=== PATIENT | male | born 1940 | race Caucasian/White ===

== ENCOUNTER 2016-04-23 07:45 | Inpatient (IN) ==
[2016-04-15 14:12] LABS: Basophils # (Auto) 0 K/mcL (0.0-0.3); Basophils % (Auto) 0.3 % (0.0-2.0); Eosinophils # (Auto) 0.2 K/mcL (0.0-0.7); Eosinophils % (Auto) 1.8 % (0.0-7.0); Granulocytes % (Auto) 69.6 % (38.0-78.0); Lymphocytes # (Auto) 1.6 K/mcL (1.5-4.8); Lymphocytes % (Auto) 17.9 % (15.5-49.0); Mean Cell Volume 100.6 fL (80.0-100.0); Mean Corpuscular Hemoglobin 33.2 pg (26.0-34.0); Monocytes % (Auto) 10.4 % (1.0-9.0); Platelet Count 265 K/mcL (140-440); RBC 4.51 M/mcL (4.50-5.90); Red Cell Distribution Width 13.7 % (11.5-14.5)
[2016-04-15 14:17] LABS: Blood Urea Nitrogen 16 mg/dl (8-23)
[2016-04-16 18:42] LABS: Appearance,Urine CLEAR; Bilirubin,Urine NEG (NEG); Color,Urine YELLOW; Glucose,Urine (UA) NEGATIVE (NEG); Leukocyte Esterase,Urine NEG /uL (NEG); Nitrate,Urine NEG (NEG); Protein,Urine NEG (NEG); Specific Gravity,Urine 1.011 (1.000-1.035); Urine Blood NEG mg/dL (<0.03); Urobilinogen,Urine NEG (NEG)
[~2016-04-23 07:45] MED LIST: ACETAMINOPHEN 500 MG TABLET PO SCH; CELECOXIB 200 MG CAPSULE PO SCH; PREGABALIN 150 MG CAPSULE PO SCH; ceFAZolin 1 GM VIAL IV SCH; oxyCODONE 10 MG TAB.ER.12H PO SCH
[2016-04-23] MEDS ORDERED: DEXAMETHASONE 10 MG/ML VIAL ONE (11:31)
[2016-04-23] MEDS ORDERED: ePHEDrine 50 MG/ML AMPUL IV ONE (11:31)
[2016-04-23] MEDS ORDERED: LIDOCAINE HCL/PF 100 MG/5 ML SYRINGE IV ONE (11:31)
[2016-04-23] MEDS ORDERED: MIDAZOLAM 5 MG/5 ML VIAL ONE (11:31)
[2016-04-23] MEDS ORDERED: PHENYLEPHRINE 10 MG/ML VIAL ONE (11:31)
[2016-04-23] MEDS ORDERED: PROPOFOL 200 MG/20 ML VIAL IV ONE (11:31)
[2016-04-23] MEDS ORDERED: GLYCOPYRROLATE 0.2 MG/ML VIAL IV ONE (11:31)
[2016-04-23] MEDS ORDERED: ONDANSETRON 4 MG/2 ML VIAL ONE (11:31)
[2016-04-23] MEDS ORDERED: GENTAMICIN SULFATE 800 MG/20 ML VIAL IR ONE (12:00)
[2016-04-23] MEDS ORDERED: diphenhydrAMINE 50 MG/ML VIAL IV PRN (12:19)
[2016-04-23] MEDS ORDERED: PROMETHAZINE 25 MG/ML VIAL IM ONE (12:19)
[2016-04-23] MEDS ORDERED: fentaNYL 100 MCG/2 ML VIAL IV PRN (12:19)
[2016-04-23] MEDS ORDERED: MEPERIDINE 25 MG/ML SYRINGE IV PRN (12:19)
[2016-04-23] MEDS ORDERED: FLUMAZENIL 0.1 MG/ML ML IV PRN (12:19)
[2016-04-23] MEDS ORDERED: PROMETHAZINE 25 MG/ML VIAL IV PRN (12:19)
[2016-04-23] MEDS ORDERED: BENZOCAINE/MENTHOL 1 LOZENGE PO PRN ×2 (12:19→13:14)
[2016-04-23] MEDS ORDERED: MEPERIDINE 50 MG/ML SYRINGE IM ONE (12:19)
[2016-04-23] MEDS ORDERED: NALOXONE HCL 0.4 MG/ML VIAL IV PRN (12:19)
[2016-04-23] MEDS ORDERED: METHOCARBAMOL 1,000 MG/10 ML VIAL IV PRN (12:19)
[2016-04-23] MEDS ORDERED: ONDANSETRON 4 MG/2 ML VIAL IV PRN ×2 (12:19→13:14)
[2016-04-23] MEDS ORDERED: HYDROmorphone 2 MG/ML SYRINGE IV PRN ×2 (12:19→13:14)
[2016-04-23] MEDS ORDERED: LACTATED RINGERS 250 ML IV PRN (12:19)
[2016-04-23] MEDS ORDERED: IPRATROPIUM/ALBUTEROL 3 ML AMPUL.NEB NEB PRN (12:19)
[2016-04-23] MEDS ORDERED: ePHEDrine 50 MG/ML AMPUL IV PRN (12:19)
[2016-04-23] MEDS ORDERED: METOCLOPRAMIDE 10 MG/2 ML VIAL IV PRN (12:19)
[2016-04-23] MEDS ORDERED: LACTATED RINGERS 1,000 ML IV SCH (12:30)
[2016-04-23] MEDS ORDERED: POLYETHYLENE GLYCOL 3350 17 GM PACKET PO PRN (13:14)
[2016-04-23] MEDS ORDERED: TEMAZEPAM 15 MG CAPSULE PO PRN (13:14)
[2016-04-23] MEDS ORDERED: TRANEXAMIC ACID 1,000 MG/10 ML VIAL IV ONE (13:14)
[2016-04-23] MEDS ORDERED: FLEETS ADULT ENEMA PR PRN (13:14)
[2016-04-23] MEDS ORDERED: ONDANSETRON ODT 4 MG TABLET SL PRN (13:14)
[2016-04-23] MEDS ORDERED: MAGNESIUM HYDROXIDE 30 ML ORAL.SUSP PO PRN (13:14)
[2016-04-23] MEDS ORDERED: BISACODYL 10 MG SUPP.RECT PR PRN (13:14)
[2016-04-23] MEDS ORDERED: ALPRAZolam 0.25 MG TABLET PO PRN (13:17)
--- NOTE | 2016-04-23 13:25 | Brief Operative Note ---
Date of procedure: 04/23/16 Pre-op diagnosis: right hip djd and tear of hip abductore Post-op diagnosis: same Procedure: right total hip cemented stem uncemented cup Grafts/Implants: Yes Anesthesia: GETA Findings: severe arthritis Complications: none Complications Description: 04/23/16 13:24 none Surgeon: Alfie Alexandre Drag Out Man: Lauri Alejo Estimated blood loss (cc): 150 Specimens Removed/Pathology: none sent Condition: stable Disposition: PACU
[2016-04-23] MEDS ORDERED: METHOTREXATE SODIUM 2.5 MG TABLET PO SCH (13:30)
--- NOTE | 2016-04-23 14:30 | Operative Note ---
DATE OF OPERATION: 04/23/2016 PREOPERATIVE DIAGNOSIS: Right hip degenerative arthritis and abductor medius tear. POSTOPERATIVE DIAGNOSIS: Right hip degenerative arthritis and abductor medius tear. PROCEDURE: Right total hip arthroplasty with debridement of the gluteus medius. SURGEON: Alfie Alexandre MD HEAD OF ADVERTISING: Lauri Alejo PA-C ANESTHESIA: General LMA anesthesia. COMPLICATIONS: None. ESTIMATED BLOOD LOSS: About 150 mL IMPLANTS PLACED: A size 8 cemented stem with a +5 neck length, a 48 mm dual mobility ball with a 54 cup with 2 screws, two 30 mm screws with a dual mobility liner. The stem was cemented. The cup was not. DESCRIPTION OF PROCEDURE: The patient was brought to the operating room and put to sleep with general LMA anesthesia. Once asleep, the patient had the right hip sterilely prepped and draped in the usual sterile fashion. Once this was done, a posterior approach was performed after confirming operative report and preop antibiotics given and tranexamic acid. Preoperative timeout was accomplished, then we confirmed the right total hip arthroplasty was the procedure and released the piriformis, inspection of sciatic nerve as well as the gluteus medius and tensor fascia abduction. With this, we then irrigated thoroughly, dissected through the soft tissue and exposed the greater trochanter. We released the capsule posteriorly as well as the piriformis obturator internus. We dislocated the hip after checking offset and leg length measurements. We irrigated thoroughly, made the neck cut at 35 mm. Once this was done, we then reamed up to the size 54, implanted a 54 cup with two 30 mm screws. We irrigated thoroughly and then implanted the cup, two 30 mm screws with a dual mobility liner was placed. Aversion was about 20 degrees of anteversion. Once this was accomplished, we then reamed up on the femur and because of the poor quality of bone we decided to cement the stem. We then broached up to a size 8 for the cemented component and trialed a size 8. This seemed to accomplish leg length and offset and measurements. X-rays were taken to confirm the length. This seemed to look well positioned without fractures. We then cemented into place a size 8 stem with a +5 neck length, a dual mobility ball. This was also reduced and excess cement had been removed. Once the hip was dried, this was reduced, leg lengths rechecked and offset and leg length was equal. We irrigated and put a stitch in the hip abductors, at least the anterior third. We irrigated thoroughly and then closed the capsule with #2 Ethibond, closed the fascial layer with 0 Ethibond and #1 Vicryl, and closed the skin with 2-0 Vicryl and adhesive closure. The patient tolerated this well. Sterile bandage was applied. RBH:sherley Job ID: [id number] Doc ID: [id number] Alfie Alexandre MD
[2016-04-23] MEDS: 0.9 % SODIUM CHLORIDE 10 ML SYRINGE IV SCH ×2 (14:47→22:47)
--- NOTE | 2016-04-23 14:47 | XRay Report ---
HISTORY: Reason for Exam:Post-op Total Hip FINDINGS: There is a well-positioned right hip prosthesis. No fracture is present. The prosthetic acetabular cup appears to be embedded medially into the ischium. Postoperative changes are present following prior spinal fusion from L4 to S1. IMPRESSION: Well-positioned right hip prosthesis Interpreted and Authenticated by: Petr Dai 04/23/16
[2016-04-23] MEDS: 0.45 % SODIUM CHLORIDE 1,000 ML IV SCH (15:07)
[2016-04-23] MEDS: HYDROcodone/APAP 10/325MG TABLET PO PRN ×2 (16:21→20:20)
[2016-04-23] MEDS: KETOROLAC 15 MG/ML VIAL IV PRN (18:32)
[2016-04-23] MEDS: ceFAZolin 1 GM VIAL IV SCH (20:19)
[2016-04-23] MEDS: SENNOSIDES 1 TABLET PO SCH (21:32)
[2016-04-23] MEDS: ASPIRIN 325 MG ENTERIC COATED TABLET PO SCH (21:32)
[2016-04-23] MEDS: DOCUSATE SODIUM 100 MG CAPSULE PO SCH (21:32)
[2016-04-24] MEDS ORDERED: 0.45 % SODIUM CHLORIDE 500 ML IV SCH (00:15)
[2016-04-24] MEDS: 0.45 % SODIUM CHLORIDE 1,000 ML IV SCH ×3 (00:17→16:44)
[2016-04-24] MEDS: KETOROLAC 15 MG/ML VIAL IV PRN ×2 (00:57→10:42)
[2016-04-24] MEDS: ACETAMINOPHEN 325 MG TABLET PO PRN ×2 (00:58→09:39)
[2016-04-24] MEDS: ceFAZolin 1 GM VIAL IV SCH (03:23)
[2016-04-24] MEDS: 0.9 % SODIUM CHLORIDE 10 ML SYRINGE IV SCH ×2 (04:58→13:28)
[2016-04-24] MEDS: LEVOTHYROXINE 100 MCG TABLET PO SCH (06:38)
[2016-04-24] MEDS: PANTOPRAZOLE 40 MG TABLET PO SCH (06:39)
[2016-04-24] MEDS ORDERED: OMEPRAZOLE 20 MG CAPSULE PO SCH (07:30)
--- NOTE | 2016-04-24 08:53 | Orthopedic Progress Note ---
Subjective Patient information: Note initiated : 04/24/16 at 8:50 am Service Date, if different from initiated Date: [] Patient: Terence Truong 75 y/o M admitted on 04/23/16 for Right Total Hip Arthroplasty with Piriformis . Chief Complaint: minimal pain and is ambulating well with low bp last night and walking well] Objective Vital signs: Vital Signs Temp Pulse Resp BP BP Pulse Ox 04/24/16 07:00 91 04/24/16 06:58 98.3 F 91 H 20 99/61 91 04/24/16 06:51 20 92 04/24/16 03:40 98.2 F 86 20 92/50 92 04/24/16 03:30 92 04/24/16 00:45 81 94/82 93 04/24/16 00:41 94 04/24/16 00:40 81 94/52 94 04/24/16 00:00 80/54 04/23/16 23:00 97.7 F 95 H 18 95/53 93 04/23/16 20:00 97.9 F 89 18 107/62 94 04/23/16 17:05 106/68 95 04/23/16 17:00 93 04/23/16 16:05 79/65 93 04/23/16 15:35 97/64 91 04/23/16 15:14 95 04/23/16 15:05 87/59 93 04/23/16 14:50 92/62 91 04/23/16 14:35 102/68 93 04/23/16 14:20 100/66 93 04/23/16 14:10 97.8 F 85 17 103/57 100 04/23/16 13:55 86 12 122/67 100 04/23/16 13:40 97.0 F L 90 12 124/90 96 04/23/16 13:14 95 04/23/16 13:10 97.8 F 89 14 115/63 96 Intake and Output 04/23/16 04/24/16 04/24/16 21:59 05:59 13:59 Intake Total 1140 / 1140 800 / 800 2160 / 2160 Output Total 550 / 550 Balance 1140 / 1140 250 / 250 2160 / 2160 Intake: IV 100 / 100 1000 / 1000 Sodium Chloride 0.45% 1, 1000 / 1000 000 ml @ 100 mls/hr IV . Q10H EUGENIA Rx#:[id number] Oral 1040 / 1040 800 / 800 1160 / 1160 Output: Void Amount 550 / 550 Straight 550 / 550 Other: Meal Dinner Percent of Meal Consumed 100% Weight 151 lb 8 oz Intake & Output: Intake & Output 04/23/16 04/24/16 04/24/16 21:59 05:59 13:59 Intake Total 1140 / 1140 800 / 800 2160 / 2160 Output Total 550 / 550 Balance 1140 / 1140 250 / 250 2160 / 2160 Weight 151 lb 8 oz Intake: IV 100 / 100 1000 / 1000 Sodium Chloride 0.45% 1, 1000 / 1000 000 ml @ 100 mls/hr IV . Q10H EUGENIA Rx#:[id number] Oral 1040 / 1040 800 / 800 1160 / 1160 Output: Void Amount 550 / 550 Straight 550 / 550 Other: Meal Dinner Percent of Meal Consumed 100% Incision: Yes healing Incision clean and dry: Yes Dressing: Yes clean Weight bearing status: full Neurological exam IM: Yes oriented X3, Yes neurovascular intact Extremities exam IM: Yes Foot pink and warm, Yes neurovascular intact (will monitor bp and make sure he can void or place cath.) - Labs CBC & BMP: 04/24/16 04:20 04/15/16 11:53 Labs: 04/24/16 04/15/16 04:20 11:54 Hgb 15.0 Hct 29.9 L 45.4
[2016-04-24] MEDS ORDERED: NON FORMULARY MEDICATION 1 DOSE MISCELL (Aspirin [Adult Low Dose Aspirin Ec] 81 MG) PO SCH (09:00)
[2016-04-24] MEDS: ASPIRIN 325 MG ENTERIC COATED TABLET PO SCH ×2 (09:30→20:53)
[2016-04-24] MEDS: DOCUSATE SODIUM 100 MG CAPSULE PO SCH ×2 (09:30→20:53)
[2016-04-24] MEDS: FOLIC ACID 1 MG TABLET PO SCH (09:30)
[2016-04-24] MEDS: OLANZapine 2.5 MG TABLET PO SCH (09:30)
[2016-04-24] MEDS: FLUoxetine HCL 20 MG CAPSULE PO SCH (09:30)
[2016-04-24] MEDS: HYDROcodone/APAP 10/325MG TABLET PO PRN (10:42)
--- NOTE | 2016-04-24 17:45 | Discharge Summary ---
Ortho Discharge - [facility] - Patient Instructions Diet: Regular Diet Activity: activity as tolerated, weight bearing as tolerated Total Hip Protocol: Follow activity instructions as provided by Physical Therapy. Dressing Care: Aquacel Ag - leave on for 5 days Patient Education: Total Hip Replacement (DC) Additional Instructions: Discharge Instructions: Do the exercises at home that physical therapy gave you. You are scheduled to start physical therapy at [facility] ([phone]) on April 28 @ 2:00 pm, please arrive 15 minutes early for paperwork. Take your prescription, photo ID, insurance cards, and current medication list with you to your first physical therapy appointment. 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 Weight bearing as tolerated. If you have the Aquacel Ag dressing, leave in place for 7 days then remove. If dressing becomes soiled (turns black), remove and use gauze 4x4 dressing and silvasorb ointment and change daily. Keep incision clean and dry. If you have Dermabond (a dressing with a mesh-like appearance), leave open to air. You may start showering on post op day #2. The Dermabond dressing can get wet, do not scrub dressing. Pat dry. To avoid constipation while taking any narcotic pain medication, take an over the counter stool softener/laxative. Use your Cryocuff or ice packs as directed, on for 20 minutes at a time throughout the day. This and elevation will help with pain and swelling. Call your physician for fevers above 100.5 or pain not controlled by medication. Your prescriptions are with your discharge information. Some medications were electronically transmitted to your pharmacy of choice. - Follow Up Plan Follow Up Appointments: Lauri Alejo PA-C [Physician Senior Pastor] - 05/06/16 1:40 pm Disposition: Home, Self-Care Prognosis: Good Rehab Potential: Good (feliz keep in for up to five days and follow up with dr. cr urology) Overall status at discharge: patient is progressing back to baseline - Orders For Discharge Prescriptions: Aspirin [Ecotrin] 325 mg PO BID #28 tab.ec HYDROcodone/APAP 10/325MG [[place] 10/325Mg] 1 - 2 tab PO Q4H PRN #60 tablet PRN Reason: Pain Additional Discharge Orders: Physical Therapy at Discharge - [facility] Location: Determined By Patient Toilet Riser Discharge Order Location: Determined By Patient Walker Location: Determined By Patient
[2016-04-24] MEDS: SENNOSIDES 1 TABLET PO SCH (20:53)
[2016-04-25] MEDS: HYDROcodone/APAP 10/325MG TABLET PO PRN ×2 (02:26→07:32)
[2016-04-25] MEDS: 0.45 % SODIUM CHLORIDE 1,000 ML IV SCH (03:54)
[2016-04-25] MEDS: 0.9 % SODIUM CHLORIDE 10 ML SYRINGE IV SCH ×2 (03:54→06:10)
[2016-04-25] MEDS: LEVOTHYROXINE 100 MCG TABLET PO SCH (07:30)
[2016-04-25] MEDS: PANTOPRAZOLE 40 MG TABLET PO SCH (07:30)
[2016-04-25] MEDS: FLUoxetine HCL 20 MG CAPSULE PO SCH (08:39)
[2016-04-25] MEDS: OLANZapine 2.5 MG TABLET PO SCH (08:39)
[2016-04-25] MEDS: ASPIRIN 325 MG ENTERIC COATED TABLET PO SCH (08:39)
[2016-04-25] MEDS: DOCUSATE SODIUM 100 MG CAPSULE PO SCH (08:39)
[2016-04-25] MEDS: FOLIC ACID 1 MG TABLET PO SCH (08:39)
== END 2016-04-25 09:00 | disposition home or self-care (01) | DRG 470 ==
LOC: MEDSUR 07:45
PROVIDERS: ADMIT Orthopaedic Surgery; ATTEND Orthopaedic Surgery

== ENCOUNTER 2019-04-12 11:31 | Observation (INO) ==
[2019-04-12] MEDS ORDERED: IOPAMIDOL 100 ML BOTTLE IV ONE (11:32)
--- NOTE | 2019-04-12 11:57 | Emergency Department Note ---
Weakness HPI - General Chief complaint: Weakness Stated complaint: weakness Time Seen by Provider: 04/12/19 11:49 Source: patient Mode of arrival: ambulatory - History of Present Illness HPI Narrative: 78-year-old patient presenting to the emergency department chief complaint of s troke symptoms. Patient's primary syndrome includes slurred speech, diffuse weakness bilateral UE's and LE's. Patient's primary syndrome does not include expressive aphasia, gait instability/posterior circulation symptoms, facial droop/upper extremity weakness/lower extremity weakness, visual disturbance. Patient with sudden onset at 0900 this morning after waking normal. Patient with past medical history significant for stroke 30 years ago and ? irregular heart rate. Patients time course was 3 hours prior to arrival. Pt is not currently on blood thinners. - Related Data Home Medications Medication Instructions Recorded Confirmed Levothyroxine [Synthroid] 100 mcg PO QAMAC 09/11/14 04/12/19 FLUoxetine HCL [Prozac] 20 mg PO DAILY 04/15/16 04/12/19 Omeprazole [Prilosec] 20 mg PO ACB 04/15/16 04/12/19 cholecalciferol (vitamin D3) 50 2,000 unit PO QDAY cap 09/14/16 04/12/19 mcg (2,000 unit) capsule Gabapentin [Neurontin] 1 tab PO TID 12/15/17 04/12/19 aspirin 81 mg tablet,delayed 81 mg PO QDAY 08/30/18 04/12/19 release Donepezil [Aricept] 10 mg PO HS 04/12/19 04/12/19 Triamcinolone Cream 0.1% 15G 1 dose TD TID PRN 04/12/19 04/12/19 inFLIXimab [Remicade] 600 mg IV UD 04/12/19 04/12/19 traZODone HCL [Trazodone HCl] 50 mg PO QHS PRN 04/12/19 04/12/19 Previous Rx's Medication Instructions Recorded Multivit,Ther Iron,Ca,FA & Min 1 tab PO DAILY tab 12/19/17 [Multivitamin W/Minerals] hydrocodone 7.5 mg-acetaminophen 1 tab PO .COMPLEX #120 tab 04/11/19 325 mg tablet Allergies Allergy/AdvReac Type Severity Reaction Status Date / Time No Known Drug Allergies Allergy Verified 02/08/19 14:18 Review of Systems All systems ED: reviewed and negative except as stated. Past Medical History - Past Medical History PMFSH Narrative: All Active Problems (Last Reviewed 12/27/18 @ 14:02 by Shayan Mendosa MD) Closed left hip fracture (Acute) Encounter for long-term use of opiate analgesic (Acute) Rapid or irregular heartbeat (Acute) Right hip pain (Acute) Back pain (Chronic) Osteoarthritis (Acute) Polyarthralgia (Acute) Encounter for long-term (current) use of high-risk medication (Acute) CVA (cerebral vascular accident) (Chronic) Depression (Chronic) Lumbar herniated disc (Chronic) Herpes zoster (Chronic) Hyperlipidemia (Chronic) SCC (squamous cell carcinoma) (Chronic) Hypercholesterolemia (Chronic) Anemia, unspecified (Chronic) Restless leg syndrome (Chronic) Anxiety (Chronic) Hypothyroidism (Chronic) Actinic keratosis (Chronic) History of skin cancer (Chronic) Irregular heart beats (Chronic) Long-term use of high-risk medication (Chronic) Osteoporosis (Chronic) Other benign neoplasm of skin of trunk (Chronic) Lentigo (Chronic) Seborrheic keratosis (Chronic) Hemangioma (Chronic) BPH w urinary obs/LUTS (Chronic) Rheumatoid arthritis (Acute) Fall (Acute) Contusion, hip (Acute) Postoperative pain of left knee (Acute) Medical history: Reports: other (rheumatoid arthritis) - Social History smoking status: Former smoker Physical Exam General: Alert, interactive, appropriate Head: Atraumatic, normocephalic Eyes: Extraocular movements intact Neck: Trachea midline, full range of motion Chest: Symmetrical chest wall rise, breathing normally Cardiovascular: Patient with excellent perfusion to the extremities Extremities: Full range of motion joints, warm well perfused Neuro: Alert, oriented x3, cranial nerves II through XII grossly intact, normal gait, patient without pronator drift, no facial asymmetry, diffuse bilateral UE and LE weakness Psychiatric: Normal affect normal mood Course Vital Signs Temperature 97.1 F 04/12/19 11:32 Pulse Rate 77 04/12/19 11:32 Respiratory Rate 16 04/12/19 11:32 Blood Pressure 127/75 04/12/19 11:32 Pulse Oximetry (%) 96 04/12/19 11:32 Temperature 97.1 F 04/12/19 20:40 Pulse Rate 70 04/12/19 20:40 Respiratory Rate 16 04/12/19 20:40 Blood Pressure 144/80 04/12/19 20:40 Pulse Oximetry (%) 97 04/12/19 20:40 Weakness - MDM Narrative Medical decision making narrative: Differential diagnosis includes seizure, migraine, metabolic abnormality such as hypoglycemia, multiple sclerosis, brain tumors, ICH, confusion, dementia, CVA, TIA, DKA, UTI, pneumonia, alcohol or drug intoxication, delirium, dehydration, sepsis, psychiatric issues, and syncope. Patient was evaluated in the emergency department with the combination of imaging/laboratory/EKG/physical exam and history. Patient was assessed for the potential need of TPA as well as aggressive stroke management. Pt was evaluated by telestroke with Dr. Pulido and I discussed the case with Dr. Pulido as well. Patient is not believed at this time to be having a stroke however further evaluation does reveal sodium at 125 and patient is feeling diffusely weak and tremor. Discussed the case with hospitalist Dr. Hidalgo and consensus medical opinion at this time is to admit the patient for ongoing evaluation and management. - Lab Data Result diagrams: 04/12/19 12:00 04/12/19 12:46 Lab Results 04/12/19 04/12/19 04/12/19 Range/Units 11:59 12:00 12:00 WBC 14.0 H (4.50-11.00) K/mcL RBC 4.22 L (4.63-6.08) M/mcL Hgb 14.6 (13.7-17.5) g/dL Hct 42.0 (40.1-51.0) % POC Hct 44.0 (41.0-55.0) % MCV 99.5 (80.0-100.0) fL MCH 34.6 H (26.0-34.0) pg MCHC 34.8 (31.0-36.0) g/dL RDW 12.7 (11.5-14.5) % Plt Count 206 (140-440) K/mcL MPV 9.2 (7.4-10.4) fL Gran % 84.5 H (38.0-78.0) % Lymph % (Auto) 8.5 L (15.5-49.0) % [place] % (Auto) 6.2 (1.0-12.0) % Eos % (Auto) 0.4 (0.0-7.0) % Baso % (Auto) 0.4 (0.0-2.0) % Gran # 11.81 H (1.80-8.00) K/mcL Lymph # (Auto) 1.19 L (1.50-4.80) K/mcL [place] # (Auto) 0.86 (0.10-0.90) K/mcL Eos # (Auto) 0.05 (0.00-0.70) K/mcL Baso # (Auto) 0.05 (0.00-0.30) K/mcL ESR (0-15) mm/hr POC PT (11.9-14.5) sec POC INR (0.9-1.2) APTT POC Sodium 132 L (133-145) mmol/L Sodium TNP POC Potassium 5.0 (3.3-5.1) mmol/L Potassium TNP POC Chloride 100 (96-108) mmol/L Chloride TNP Carbon Dioxide TNP POC Total CO2 26 (22-30) mmol/L Anion Gap TNP POC BUN 17 (8-23) mg/dl BUN TNP Creatinine TNP POC Creatinine 0.6 L (0.7-1.2) mg/dl GFR Calculation TNP Glucose TNP POC Glucose 115 H (70-105) mg/dL Calcium TNP POC WB Ioniz Calcium 1.17 (1.16-1.32) mmol/L Total Bilirubin TNP AST TNP ALT TNP Alkaline Phosphatase TNP Troponin T TNP C-Reactive Protein (0.0-0.8) mg/dl Total Protein TNP Albumin TNP Globulin TNP Albumin/Globulin Ratio TNP Procalcitonin (<0.10) ng/mL Urine Color Urine Appearance Urine pH (5.0-9.0) Ur Specific [place] (1.000-1.035) Urine Protein (NEG) mg/dL Urine Glucose (UA) (NEG) mg/dL Urine Ketones (NEG) mg/dL Urine Occult Blood (<0.03) mg/dL Urine Nitrate (NEG) Urine Bilirubin (NEG) mg/dL Urine Urobilinogen (NEG) mg/dL Ur Leukocyte Esterase (NEG) /uL Ur Culture Indicated? Urine Osmolality (80-1000) mOsm/kg Ur Random Sodium mmol/L 04/12/19 04/12/19 04/12/19 Range/Units 12:10 12:46 12:46 WBC (4.50-11.00) K/mcL RBC (4.63-6.08) M/mcL Hgb (13.7-17.5) g/dL Hct (40.1-51.0) % POC Hct (41.0-55.0) % MCV (80.0-100.0) fL MCH (26.0-34.0) pg MCHC (31.0-36.0) g/dL RDW (11.5-14.5) % Plt Count (140-440) K/mcL MPV (7.4-10.4) fL Gran % (38.0-78.0) % Lymph % (Auto) (15.5-49.0) % [place] % (Auto) (1.0-12.0) % Eos % (Auto) (0.0-7.0) % Baso % (Auto) (0.0-2.0) % Gran # (1.80-8.00) K/mcL Lymph # (Auto) (1.50-4.80) K/mcL [place] # (Auto) (0.10-0.90) K/mcL Eos # (Auto) (0.00-0.70) K/mcL Baso # (Auto) (0.00-0.30) K/mcL ESR (0-15) mm/hr POC PT 12.8 (11.9-14.5) sec POC INR 1.1 (0.9-1.2) APTT TNP POC Sodium (133-145) mmol/L Sodium 125 L POC Potassium (3.3-5.1) mmol/L Potassium 4.1 POC Chloride (96-108) mmol/L Chloride 92 L Carbon Dioxide 24 POC Total CO2 (22-30) mmol/L Anion Gap 9.0 POC BUN (8-23) mg/dl BUN 13 Creatinine 0.7 POC Creatinine (0.7-1.2) mg/dl GFR Calculation 89 Glucose 107 H POC Glucose (70-105) mg/dL Calcium 9.0 POC WB Ioniz Calcium (1.16-1.32) mmol/L Total Bilirubin 0.6 AST 20 ALT 15 Alkaline Phosphatase 51 Troponin T < 0.01 C-Reactive Protein (0.0-0.8) mg/dl Total Protein 6.0 Albumin 3.9 Globulin 2.1 L Albumin/Globulin Ratio 1.9 Procalcitonin (<0.10) ng/mL Urine Color Urine Appearance Urine pH (5.0-9.0) Ur Specific [place] (1.000-1.035) Urine Protein (NEG) mg/dL Urine Glucose (UA) (NEG) mg/dL Urine Ketones (NEG) mg/dL Urine Occult Blood (<0.03) mg/dL Urine Nitrate (NEG) Urine Bilirubin (NEG) mg/dL Urine Urobilinogen (NEG) mg/dL Ur Leukocyte Esterase (NEG) /uL Ur Culture Indicated? Urine Osmolality (80-1000) mOsm/kg Ur Random Sodium mmol/L 04/12/19 04/12/19 04/12/19 Range/Units 12:46 12:46 12:46 WBC (4.50-11.00) K/mcL RBC (4.63-6.08) M/mcL Hgb (13.7-17.5) g/dL Hct (40.1-51.0) % POC Hct (41.0-55.0) % MCV (80.0-100.0) fL MCH (26.0-34.0) pg MCHC (31.0-36.0) g/dL RDW (11.5-14.5) % Plt Count (140-440) K/mcL MPV (7.4-10.4) fL Gran % (38.0-78.0) % Lymph % (Auto) (15.5-49.0) % [place] % (Auto) (1.0-12.0) % Eos % (Auto) (0.0-7.0) % Baso % (Auto) (0.0-2.0) % Gran # (1.80-8.00) K/mcL Lymph # (Auto) (1.50-4.80) K/mcL [place] # (Auto) (0.10-0.90) K/mcL Eos # (Auto) (0.00-0.70) K/mcL Baso # (Auto) (0.00-0.30) K/mcL ESR 8 (0-15) mm/hr POC PT (11.9-14.5) sec POC INR (0.9-1.2) APTT 27 POC Sodium (133-145) mmol/L Sodium POC Potassium (3.3-5.1) mmol/L Potassium POC Chloride (96-108) mmol/L Chloride Carbon Dioxide POC Total CO2 (22-30) mmol/L Anion Gap POC BUN (8-23) mg/dl BUN Creatinine POC Creatinine (0.7-1.2) mg/dl GFR Calculation Glucose POC Glucose (70-105) mg/dL Calcium POC WB Ioniz Calcium (1.16-1.32) mmol/L Total Bilirubin AST ALT Alkaline Phosphatase Troponin T C-Reactive Protein < 0.3 (0.0-0.8) mg/dl Total Protein Albumin Globulin Albumin/Globulin Ratio Procalcitonin (<0.10) ng/mL Urine Color Urine Appearance Urine pH (5.0-9.0) Ur Specific [place] (1.000-1.035) Urine Protein (NEG) mg/dL Urine Glucose (UA) (NEG) mg/dL Urine Ketones (NEG) mg/dL Urine Occult Blood (<0.03) mg/dL Urine Nitrate (NEG) Urine Bilirubin (NEG) mg/dL Urine Urobilinogen (NEG) mg/dL Ur Leukocyte Esterase (NEG) /uL Ur Culture Indicated? Urine Osmolality (80-1000) mOsm/kg Ur Random Sodium mmol/L 04/12/19 04/12/19 04/12/19 Range/Units 12:46 13:47 13:47 WBC (4.50-11.00) K/mcL RBC (4.63-6.08) M/mcL Hgb (13.7-17.5) g/dL Hct (40.1-51.0) % POC Hct (41.0-55.0) % MCV (80.0-100.0) fL MCH (26.0-34.0) pg MCHC (31.0-36.0) g/dL RDW (11.5-14.5) % Plt Count (140-440) K/mcL MPV (7.4-10.4) fL Gran % (38.0-78.0) % Lymph % (Auto) (15.5-49.0) % [place] % (Auto) (1.0-12.0) % Eos % (Auto) (0.0-7.0) % Baso % (Auto) (0.0-2.0) % Gran # (1.80-8.00) K/mcL Lymph # (Auto) (1.50-4.80) K/mcL [place] # (Auto) (0.10-0.90) K/mcL Eos # (Auto) (0.00-0.70) K/mcL Baso # (Auto) (0.00-0.30) K/mcL ESR (0-15) mm/hr POC PT (11.9-14.5) sec POC INR (0.9-1.2) APTT POC Sodium (133-145) mmol/L Sodium POC Potassium (3.3-5.1) mmol/L Potassium POC Chloride (96-108) mmol/L Chloride Carbon Dioxide POC Total CO2 (22-30) mmol/L Anion Gap POC BUN (8-23) mg/dl BUN Creatinine POC Creatinine (0.7-1.2) mg/dl GFR Calculation Glucose POC Glucose (70-105) mg/dL Calcium POC WB Ioniz Calcium (1.16-1.32) mmol/L Total Bilirubin AST ALT Alkaline Phosphatase Troponin T C-Reactive Protein (0.0-0.8) mg/dl Total Protein Albumin Globulin Albumin/Globulin Ratio Procalcitonin < 0.05 (<0.10) ng/mL Urine Color Yellow Urine Appearance Clear Urine pH 6.0 (5.0-9.0) Ur Specific [place] 1.044 H (1.000-1.035) Urine Protein Neg (NEG) mg/dL Urine Glucose (UA) Negative (NEG) mg/dL Urine Ketones 20 A (NEG) mg/dL Urine Occult Blood Neg (<0.03) mg/dL Urine Nitrate Neg (NEG) Urine Bilirubin Neg (NEG) mg/dL Urine Urobilinogen Neg (NEG) mg/dL Ur Leukocyte Esterase Neg (NEG) /uL Ur Culture Indicated? No Urine Osmolality (80-1000) mOsm/kg Ur Random Sodium 41 mmol/L 04/12/19 Range/Units 13:47 WBC (4.50-11.00) K/mcL RBC (4.63-6.08) M/mcL Hgb (13.7-17.5) g/dL Hct (40.1-51.0) % POC Hct (41.0-55.0) % MCV (80.0-100.0) fL MCH (26.0-34.0) pg MCHC (31.0-36.0) g/dL RDW (11.5-14.5) % Plt Count (140-440) K/mcL MPV (7.4-10.4) fL Gran % (38.0-78.0) % Lymph % (Auto) (15.5-49.0) % [place] % (Auto) (1.0-12.0) % Eos % (Auto) (0.0-7.0) % Baso % (Auto) (0.0-2.0) % Gran # (1.80-8.00) K/mcL Lymph # (Auto) (1.50-4.80) K/mcL [place] # (Auto) (0.10-0.90) K/mcL Eos # (Auto) (0.00-0.70) K/mcL Baso # (Auto) (0.00-0.30) K/mcL ESR (0-15) mm/hr POC PT (11.9-14.5) sec POC INR (0.9-1.2) APTT POC Sodium (133-145) mmol/L Sodium POC Potassium (3.3-5.1) mmol/L Potassium POC Chloride (96-108) mmol/L Chloride Carbon Dioxide POC Total CO2 (22-30) mmol/L Anion Gap POC BUN (8-23) mg/dl BUN Creatinine POC Creatinine (0.7-1.2) mg/dl GFR Calculation Glucose POC Glucose (70-105) mg/dL Calcium POC WB Ioniz Calcium (1.16-1.32) mmol/L Total Bilirubin AST ALT Alkaline Phosphatase Troponin T C-Reactive Protein (0.0-0.8) mg/dl Total Protein Albumin Globulin Albumin/Globulin Ratio Procalcitonin (<0.10) ng/mL Urine Color Urine Appearance Urine pH (5.0-9.0) Ur Specific [place] (1.000-1.035) Urine Protein (NEG) mg/dL Urine Glucose (UA) (NEG) mg/dL Urine Ketones (NEG) mg/dL Urine Occult Blood (<0.03) mg/dL Urine Nitrate (NEG) Urine Bilirubin (NEG) mg/dL Urine Urobilinogen (NEG) mg/dL Ur Leukocyte Esterase (NEG) /uL Ur Culture Indicated? Urine Osmolality 368 (80-1000) mOsm/kg Ur Random Sodium mmol/L - EKG Data EKG results narrative: EKG: Rate: 75, AL: 273, rhythm: Sinus with first degree av block, patient without ST elevations to suggest STEMI, patient without concerning T wave inversions or other findings to suggest NSTEMI Disposition Pt seen by POKER SUPERVISOR/PA only: No Clinical Impression: Weakness, Hyponatremia Disposition: Xfer As Outpt/Obs ([facility]) Condition: Fair
--- NOTE | 2019-04-12 12:06 | Cat Scan Report ---
CLINICAL INFORMATION: Code stroke COMPARISON: None. TECHNIQUE: Axial noncontrast-enhanced images through the brain. Sagittally and coronally reformatted images. FINDINGS: No acute intracranial hemorrhage. No intraaxial hematoma. No focal intra-axial attenuation abnormality or localized mass effect. No midline shift. Brain volume is within normal limits for age. Cerebellum and brainstem are negative. No extra-axial, intracranial abnormality. No subdural hematoma. There is no subarachnoid hemorrhage. Basilar cisterns are normal. No calvarial lesions. Temporal bones are negative. IMPRESSION: Negative noncontrast enhanced brain CT scan The exam was performed using radiation dose optimization techniques including, but not limited to, automated exposure control, adjustment of the mA and/or kV according to patient size and use of iterative reconstruction technique. Interpreted and Authenticated by: Devyn Russell 04/12/19
[2019-04-12 12:09] LABS: POC Blood Urea Nitrogen 17 mg/dl (8-23); POC CO2 26 mmol/L (22-30); POC Calcium, Ionized 1.17 mmol/L (1.16-1.32); POC Chloride 100 mmol/L (96-108); POC Creatinine 0.6 mg/dl (0.7-1.2); POC Glucose, Random 115 mg/dL (70-105); POC Sodium 132 mmol/L (133-145)
[2019-04-12 12:17] LABS: POC INR 1.1 (0.9-1.2); POC Pro Time 12.8 sec (11.9-14.5)
[2019-04-12 12:28] LABS: Basophils # (Auto) 0.05 K/mcL (0.00-0.30); Basophils % (Auto) 0.4 % (0.0-2.0); Eosinophils # (Auto) 0.05 K/mcL (0.00-0.70); Eosinophils % (Auto) 0.4 % (0.0-7.0); Granulocytes % (Auto) 84.5 % (38.0-78.0); Hemoglobin 14.6 g/dL (13.7-17.5); Lymphocytes # (Auto) 1.19 K/mcL (1.50-4.80); Lymphocytes % (Auto) 8.5 % (15.5-49.0); Mean Cell Volume 99.5 fL (80.0-100.0); Mean Corpuscular HGB Conc 34.8 g/dL (31.0-36.0); Mean Platelet Volume 9.2 fL (7.4-10.4); Monocytes # (Auto) 0.86 K/mcL (0.10-0.90); Monocytes % (Auto) 6.2 % (1.0-12.0); Platelet Count 206 K/mcL (140-440); RBC 4.22 M/mcL (4.63-6.08); Red Cell Distribution Width 12.7 % (11.5-14.5)
--- NOTE | 2019-04-12 13:05 | XRay Report ---
CLINICAL INFORMATION:Code stroke TECHNIQUE: AP portable semiupright chest x-ray COMPARISON: Previous chest x-rays dated 02/01/2019, 12/14/2017, 09/22/2016 FINDINGS:Lungs are negative. No parenchymal infiltrate or mass. No focal pulmonary parenchymal abnormality. Heart size and vascularity are normal. Valeria and mediastinum are negative. No pulmonary edema or pulmonary congestion IMPRESSION: 1. Negative AP chest x-ray 2. No interval change Interpreted and Authenticated by: Devyn Russell 04/12/19
--- NOTE | 2019-04-12 13:20 | Cat Scan Report ---
CLINICAL INFORMATION: Code stroke COMPARISON: None. TECHNIQUE: Axial images were obtained through the upper chest, neck, and head during arterial phase. MIP and CPR reformatted images. 90ml Isovue 370 injected intravenously. FINDINGS: AORTIC ARCH:Mild calcified atherosclerotic plaque. No stenosis at the origin of the great vessels. Origins of the left subclavian artery, left common carotid artery, innominate artery, right common carotid artery, right subclavian artery are negative. CAROTID ARTERIES:Minimal calcified plaque in the distal right common carotid artery at the bifurcation. Right common carotid artery is otherwise negative. Minimal calcified plaque at the origin of the right internal carotid artery. Cervical internal carotid artery is otherwise negative. There is no stenosis. No ulceration. No evidence for fibromuscular dysplasia or dissection. Minimal calcified plaque and noncalcified plaque in the distal left common carotid artery and proximal internal carotid artery. There is no stenosis. There is no ulceration. There is no dissection or fibromuscular dysplasia. Left internal carotid artery is patent without stenosis. VERTEBRAL ARTERIES:Negative. Origins of the vertebral arteries are negative. Cervical portions of the vertebral arteries are normal. Left vertebral artery is larger than the right [place]:Intracranial vertebral arteries are normal. Basilar artery is normal. Petrous, cavernous, supraclinoid segments of both internal carotid arteries are negative. No stenosis. There is calcification in the cavernous segments bilaterally. M1 segments of the middle cerebral arteries and A1 segments and the anterior cerebral arteries are normal. Posterior cerebral arteries are negative. No intracranial stenosis or branch occlusion. No intracranial AVM or aneurysm UPPER CHEST:Negative. No focal mass. No focal infiltrate. Superior mediastinum is negative. NECK:No solid or cystic soft tissue mass. No prevertebral soft tissue swelling there is degenerative disc disease in the cervical spine. Multilevel degenerative disc disease. There is C3-4 retrolisthesis. If this patient has symptoms of spinal cord injury MRI scan is recommended. BRAIN:No enhancing lesions. No detectable branch occlusion IMPRESSION: 1. Mild atherosclerotic disease as above. 2. No stenosis or branch occlusion 3. Severe degenerative disc disease and facet arthropathy at C3-4. There is retrolisthesis and spinal canal stenosis. Clinical correlation for possible spinal cord injury recommended The exam was performed using radiation dose optimization techniques including, but not limited to, automated exposure control, adjustment of the mA and/or kV according to patient size and use of iterative reconstruction technique. Interpreted and Authenticated by: Devyn Russell 2/20/20
[2019-04-12 13:36] LABS: ALT/SGPT 15 U/l (0-40); AST/SGOT 20 U/l (0-37); Albumin 3.9 gm/dL (3.2-5.2); Albumin/Globulin Ratio 1.9 (1.0-2.3); Alkaline Phosphatase 51 U/L (39-117); Bilirubin,Total 0.6 mg/dL (0.0-1.0); Blood Urea Nitrogen 13 mg/dl (8-23); Carbon Dioxide 24 mmol/L (22-30); Chloride 92 mmol/L (96-108); Globulin 2.1 gm/dL (2.2-3.7); Glomerular Filtration Rate 89; Glucose 107 mg/dL (70-105)
[2019-04-12] MEDS ORDERED: 0.9 % SODIUM CHLORIDE 1,000 ML IV ONE (14:23)
[2019-04-12 14:47] LABS: Appearance,Urine CLEAR; Bilirubin,Urine NEG (NEG); Color,Urine YELLOW; Culture Indicated,Urine NO; Glucose,Urine (UA) NEGATIVE (NEG); Ketones,Urine 20 mg/dL (NEG); Leukocyte Esterase,Urine NEG /uL (NEG); Nitrate,Urine NEG (NEG); Protein,Urine NEG (NEG); Specific Gravity,Urine 1.044 (1.000-1.035); Urine Blood NEG mg/dL (<0.03); Urobilinogen,Urine NEG (NEG)
--- NOTE | 2019-04-12 15:50 | Internal Med History&Physical ---
Medical - H&P: [facility] Patient information: Note initiated : 04/12/19 at 3:34 pm Service Date, if different from initiated Date: [] Patient: Terence Truong a 78 y/o M admitted on for Weakness. Chief Complaint: [] Chief complaint: Shaking chills weakness History of present illness: Mr. Truong is a 78 year old M with a known history of arthritis currently on Remicade who woke up this morning in his usual state of health until around 9 PM started abruptly experiencing shaking chills that lasted for 45 minutes. He was subsequently nauseous and weak and noticed bilateral upper and lower ex tremity weakness along with slurred speech. With concerns of stroke he was evaluated in the ER. Initial NIH score 8, work-up was unremarkable with negative CT angiogram head neck/head CT. Neurologist was consulted Biochemical profile consistent with white count of 14,000, sodium 125 urine osmolality 368. Hospital service was consulted. At the time evaluation patient is accompanied with his . She was able to answer most questions. Patient is hard of hearing. He however was able to an swer most of the questions and endorsed to history as above. He denies sick contacts or recent hospitalization. He denies changes in medications. He endorses to over 15 pound weight loss over the last few months with persistent loss of appetite. He denies urinary or GI symptoms, chest pain, ligh theadedness, rash, joint pain, neck stiffness or photophobia. He denies recent falls. Review of systems A 10 point review system was performed and is negative except for ones discussed above Medical - H&P: PMH Medical history: Right hip pain (Acute) Back pain (Chronic) Sjogrens syndrome (Suspected) Osteoarthritis (Acute) Polyarthralgia (Acute) Encounter for long-term (current) use of high-risk medication (Acute) CVA (cerebral vascular accident) (Chronic) Depression (Chronic) Lumbar herniated disc (Chronic) Herpes zoster (Chronic) Hyperlipidemia (Chronic) SCC (squamous cell carcinoma) (Chronic) right alevism Hypercholesterolemia (Chronic) Anemia, unspecified (Chronic) Restless leg syndrome (Chronic) Anxiety (Chronic) Hypothyroidism (Chronic) Actinic keratosis (Chronic) History of skin cancer (Chronic) Irregular heart beats (Chronic) Long-term use of high-risk medication (Chronic) Osteoporosis (Chronic) Other benign neoplasm of skin of trunk (Chronic) mole of trunk Lentigo (Chronic) Seborrheic keratosis (Chronic) Hemangioma (Chronic) BPH w urinary obs/LUTS (Chronic) Rheumatoid arthritis (Acute) Fall (Acute) Contusion, hip (Acute) Postoperative pain of left knee (Acute) Surgical History History of appendectomy (Chronic ~1964) History of hip surgery (Chronic ~2014) right hip bursa surgery History of left knee replacement (Chronic ~2015) History of lumbar surgery (Chronic ~2012) History of lumbar surgery (Chronic ~2008) lumbar foraminotomies for right sciatica History of repair of right rotator cuff (Chronic ~2003) History of shoulder surgery (Chronic ~1998) right History of spinal fusion (Chronic ~2006) History of surgery (Chronic ~2013) right iliotibial band Z-plasty History of total knee replacement (Chronic ~2009) right Family History ( Other No pertinent family history Social History marital status: education level: high school occupational status: retired physical activity: none smoking status: Smokeless tobacco alcohol intake frequency: a few times a month substance use type: does not use Medical - H&P: Meds Home Medications Medication Instructions Recorded Confirmed Type Levothyroxine [Synthroid] 100 mcg PO QAMAC 09/11/14 04/12/19 History FLUoxetine HCL [Prozac] 20 mg PO DAILY 04/15/16 04/12/19 History Omeprazole [Prilosec] 20 mg PO ACB 04/15/16 04/12/19 History cholecalciferol (vitamin D3) 50 2,000 unit PO QDAY cap 09/14/16 04/12/19 History mcg (2,000 unit) capsule Gabapentin [Neurontin] 1 tab PO TID 12/15/17 04/12/19 History Multivit,Ther Iron,Ca,FA & Min 1 tab PO DAILY tab 12/19/17 04/12/19 Rx [Multivitamin W/Minerals] aspirin 81 mg tablet,delayed 81 mg PO QDAY 08/30/18 04/12/19 History release hydrocodone 7.5 mg-acetaminophen 1 tab PO .COMPLEX #120 tab 04/11/19 04/12/19 Rx 325 mg tablet Donepezil [Aricept] 10 mg PO HS 04/12/19 04/12/19 History Triamcinolone Cream 0.1% 15G 1 dose TD TID PRN 04/12/19 04/12/19 History inFLIXimab [Remicade] 600 mg IV UD 04/12/19 04/12/19 History traZODone HCL [Trazodone HCl] 50 mg PO QHS PRN 04/12/19 04/12/19 History Allergies Allergy/AdvReac Type Severity Reaction Status Date / Time No Known Drug Allergies Allergy Verified 02/08/19 14:18 Medical - H&P: Exam - Constitutional Vitals: Temp Pulse Resp BP Pulse Ox 97.1 F 80 17 141/64 99 04/12/19 11:32 04/12/19 15:16 04/12/19 15:16 04/12/19 15:16 04/12/19 15:16 General appearance: no acute distress Exam: Alert and respond to commands Head normocephalic Oral cavity dry No ear nose discharge, hard of hearing Neck lymphadenopathy or JVD S1-S2 occasionally irregular, ESM grade 1, tachycardia Diminished breath sounds bases Abdomen soft nontender nondistended Lower extremity no cyanosis clubbing no joint swelling or erythema Skin no suspicious lesion Psych alert cooperative Neuro minimal right-sided eyelid droop but symmetrical strength sensation and normal heart function. NIH score 2 down from 8, GCS 14 Medical - H&P: Reslt - Labs CBC & Chem 7: 04/12/19 12:00 04/12/19 12:46 Labs: Short CBC 04/12/19 Range/Units 12:00 WBC 14.0 H (4.50-11.00) K/mcL Hgb 14.6 (13.7-17.5) g/dL Hct 42.0 (40.1-51.0) % Plt Count 206 (140-440) K/mcL BMP 04/12/19 04/12/19 11:59 12:46 Sodium TNP 125 L Potassium TNP 4.1 Chloride TNP 92 L Carbon Dioxide TNP 24 BUN TNP 13 Creatinine TNP 0.7 Glucose TNP 107 H Calcium TNP 9.0 Cardiac Enzymes 04/12/19 04/12/19 Range/Units 12:00 12:46 Troponin T TNP < 0.01 Liver Function 04/12/19 04/12/19 Range/Units 11:59 12:46 Total Bilirubin TNP 0.6 AST TNP 20 ALT TNP 15 Alkaline Phosphatase TNP 51 Albumin TNP 3.9 Urine 04/12/19 Range/Units 13:47 Urine Color Yellow Urine Appearance Clear Urine pH 6.0 (5.0-9.0) Ur Specific [place] 1.044 H (1.000-1.035) Urine Protein Neg (NEG) mg/dL Urine Glucose (UA) Negative (NEG) mg/dL Medical - H&P: A/P (1) TIA (transient ischemic attack) Current visit: Yes Status: Acute * TIA symptoms-clinically resolved. CT head/CT angiogram head neck unremarkable. Continue additional work-up including MRI/echocardiogram with bubble study/neurochecks/telemetry monitoring. Check lipid profile. Continue aspirin statin. * Leukocytosis unclear etiology with shaking chills suspicious for bacteremia in the setting of immunocompromise state. Received recent infusion of Remicade. Continue blood cultures/empiric antibiotic and source evaluation. De-escalate if no source identified. * Hyponatremia-125. Elevated urine osmolality suggestive of SIADH. Continue free water restriction, follow labs * Severe deconditioning weakness continue PT OT * History of dementia on donepezil * History of rheumatoid arthritis continue hydroxychloroquine/pain management on opioids. On Remicade as outpatient managed by rheumatology * History of prior CVA patient. Continue aspirin/start statin * Hypothyroidism continue thyroxine * Anxiety disorder continue fluoxetine/Xanax * History of BPH continue dutastride * Degenerative joint disease continue as needed hydrocodone * Neuropathy continue gabapentin * Full code * Prophylaxis heparin Plan * Observation admit * Stroke work-up * Leukocytosis work-up * Empiric antibiotic * MRI head brain/echocardiogram * Free water restriction * CT abdomen * Prior medical condition management home meds
[2019-04-12] MEDS ORDERED: guaiFENesin/CODEINE 10 ML UDC PO PRN (16:44)
[2019-04-12] MEDS ORDERED: BISACODYL 10 MG SUPP.RECT PR PRN (16:44)
[2019-04-12] MEDS ORDERED: ACETAMINOPHEN 650 MG/65 ML BOTTLE IV PRN (16:44)
[2019-04-12] MEDS ORDERED: ONDANSETRON 4 MG ODT TABLET SL PRN (16:44)
[2019-04-12] MEDS ORDERED: traZODone HCL 50 MG TABLET PO PRN (16:44)
[2019-04-12] MEDS ORDERED: POLYETHYLENE GLYCOL 3350 17 GM PACKET PO PRN (16:44)
[2019-04-12] MEDS ORDERED: POTASSIUM CHLORIDE 20 MEQ PACKET PO PRN (16:44)
[2019-04-12] MEDS ORDERED: CEFEPIME 2 GM in DEXTROSE 5% IN WATER 50 ML IV SCH (16:44)
[2019-04-12] MEDS ORDERED: ONDANSETRON 4 MG/2 ML VIAL IV PRN (16:44)
[2019-04-12] MEDS ORDERED: MELATONIN 3 MG TABLET PO PRN (16:44)
[2019-04-12] MEDS ORDERED: ACETAMINOPHEN 325 MG TABLET PO PRN (16:44)
[2019-04-12] MEDS ORDERED: MAGNESIUM SULFATE 2 GM/50 ML BAG IV PRN (16:44)
--- NOTE | 2019-04-12 18:16 | Magnetic Resonance Report ---
CLINICAL INFORMATION: Slurred speech TECHNIQUE: Sagittal, axial, coronal images of the brain COMPARISON: Previous brain CT scan dated 04/12/2019. Previous CTA of the neck and head dated 04/12/2019 FINDINGS: No restricted diffusion. No acute infarction. There is no susceptibility. No hemorrhagic abnormality. Cerebral hemispheres are negative. There is age-appropriate cerebral atrophy with prominent superficial subarachnoid spaces and ventricles. No focal intra-axial signal abnormality. No localized mass effect. No midline shift. Brainstem and cerebellum are negative. No extra-axial, intracranial abnormality. Normal flow void within vessels of the base of the brain Paranasal sinuses and temporal bones are negative. IMPRESSION: 1. Age-appropriate cerebral atrophy 2. Negative MRI scan of brain and posterior fossa Interpreted and Authenticated by: Devyn Russell 04/12/19
--- NOTE | 2019-04-12 18:48 | Cat Scan Report ---
CLINICAL INFORMATION: Leukocytosis COMPARISON: None. TECHNIQUE: Axial images were obtained through the abdomen and pelvis. Sagittally and coronally reformatted images. FINDINGS: Lung bases:There is reticular abnormality at both lung bases. There is mild infiltrate, right worse than left. No dense consolidation. Pneumonia in including atypical pneumonia is possible. Pericardial fluid is considered physiologic. No significant pleural fluid. There is dense coronary artery calcification Liver:5 mm low density lesion in the right lobe of the liver, image 28. This is nonspecific. There is a wedge-shaped low density lesion in the posterior and inferior aspects of the right lobe. Etiology is not certain. Hepatic infarctions are rare due to dual blood supply. Appearance is not typical of abscess. Follow-up ultrasound or CT scan recommended. Gallbladder, billary:No calcified gallstones. No dilated bile ducts Spleen:No splenomegaly Pancreas:Negative Adrenal glands:Negative Kidneys, ureters, bladder:No detectable renal mass. There is contrast material within the intrarenal collecting systems, ureters, and bladder from previous head and neck CTA. There is no hydronephrosis or hydroureter. Bladder is filled with contrast material. There is bladder wall trabeculation. No detectable mass. Gastrointestinal:Prominent fecal material within the rectum. No pneumatosis. No diverticulitis. No detectable colonic mass. There is no mechanical small bowel obstruction. No evidence for appendicitis Vascular:There is calcification of the abdominal aorta. AP diameter of the infrarenal abdominal aorta measures 2 cm. Lymphatic:No retroperitoneal or mesenteric adenopathy Mesentery, peritoneum:No free intraperitoneal fluid. No intra-abdominal abscess. There is no pneumoperitoneum Reproductive:Prostate is not well imaged Musculoskeletal:No acute lumbar compression fracture. Severe multilevel degenerative disc disease. There is no sacral fracture. No pelvic fracture. No lytic lesions. Patient has undergone previous lower lumbar spinal fusion. There is a gamma nail configuration in the left hip and a total right hip prosthesis IMPRESSION: 1. Wedge-shaped low density lesion in the inferior and posterior right lobe of the liver. Etiology is not certain. Appearance is not typical of abscess 2. No intra-abdominal abscess. Etiology of leukocytosis is not certain 3. Multilevel degenerative disc disease. No lumbar compression fracture 4. Large amount of fecal material within the rectum. No evidence for stercoral colitis The exam was performed using radiation dose optimization techniques including, but not limited to, automated exposure control, adjustment of the mA and/or kV according to patient size and use of iterative reconstruction technique. Interpreted and Authenticated by: Devyn Russell 04/12/19
[2019-04-12] MEDS: 0.9 % SODIUM CHLORIDE 1,000 ML IV SCH (20:45)
[2019-04-12] MEDS ORDERED: DONEPEZIL 10 MG TABLET PO SCH (21:00)
[2019-04-12] MEDS: CEFEPIME 2 GM VIAL IV SCH (21:17)
[2019-04-12] MEDS: 0.9 % SODIUM CHLORIDE 10 ML SYRINGE IV SCH (21:32)
[2019-04-12] MEDS: ATORVASTATIN 40 MG TABLET PO SCH (21:32)
[2019-04-12] MEDS: GABAPENTIN 300 MG CAPSULE PO SCH (21:32)
[2019-04-12] MEDS: DOCUSATE SODIUM 100 MG CAPSULE PO SCH (21:32)
[2019-04-12] MEDS: HEPARIN 5,000 UNIT/ML VIAL SQ SCH (21:32)
[2019-04-12] MEDS: SENNOSIDES/DOCUSATE SODIUM 1 TAB TABLET PO SCH (21:32)
--- NOTE | 2019-04-12 22:23 | Internal Med Progress Note ---
Medical - PN: Subj Patient information: Note initiated : 04/13/19 at 10:22 am Service Date, if different from initiated Date: [] Patient: Terence Truong a 78 y/o M admitted on 04/12/19 for Weakness. Chief Complaint: [] Interval history: Mr. Truong is a 78 year old M with a known history of arthritis currently on Remicade who woke up this morning in his usual state of health until around 9 PM started abruptly experiencing shaking chills that lasted for 45 minutes. He was subsequently nauseous and weak and noticed bilateral upper and lower extremity weakness along with slurred speech. With concerns of stroke he was evaluated in the ER. Initial NIH score 8, work-up was unremarkable with negative CT angiogram head neck/head CT. Neurologist was consulted Biochemical profile consistent with white count of 14,000, sodium 125 urine osmolality 368. Hospital service was consulted. At the time evaluation patient is accompanied with his . She was able to answer most questions. Patient is hard of hearing. He however was able to answer most of the questions and endorsed to history as above. He denies sick contacts or recent hospitalization. He denies changes in medications. He endorses to over 15 pound weight loss over the last few months with persistent loss of appetite. He denies urinary or GI symptoms, chest pain, lightheadedness, rash, joint pain, neck stiffness or photophobia. 04/13-patient doing well. Was unable to sleep last night however clinically much improved. at bedside. No fever chills or concerns per nursing staff. Stable hemodynamics. Currently on room air. White count down from 14->6.7. Discontinue antibiotic coverage as below evidence of infection at this time. MRI brain unremarkable. Echocardiogram pending. Will possibly discharge in 24 hours if continues to improve clinically. Continue telemetry monitoring for additional 24 hours. - Constitutional Vitals: Vital Signs Temp Pulse Resp BP Pulse Ox 97.1 F 70 16 144/80 97 04/12/19 20:40 04/12/19 20:40 04/12/19 20:40 04/12/19 20:40 04/12/19 22:16 Period Temp Pulse Resp BP Sys/[place]illo Pulse Ox Last 24 Hr 97.1 F-99.1 F 70-87 13-22 125-149/64-89 96-99 Intake and Output 04/12/19 04/12/19 04/13/19 13:59 21:59 05:59 Output Total 601 Balance -601 Weight 135 lb 131 lb Patient Weight 04/13/19 05:59 Weight 131 lb Intake & Output: Intake & Output 04/12/19 04/12/19 04/13/19 13:59 21:59 05:59 Output Total 601 Balance -601 Weight 135 lb 131 lb Output: Void Amount 600 # of times incontinent of urine 1 Other: Urine Appearance Clear Urine Color Bright Yellow General appearance: no acute distress Exam: Alert oriented Tachycardia telemetry Nonlabored breathing No anxiety Medical - PN: Obj Da - Labs CBC & Chem 7: 04/13/19 05:05 04/13/19 05:05 Labs: Abnormal Lab Results 04/12/19 04/12/19 04/12/19 13:47 12:46 12:00 WBC 14.0 H RBC 4.22 L MCH 34.6 H Gran % 84.5 H Lymph % (Auto) 8.5 L Gran # 11.81 H Lymph # (Auto) 1.19 L POC Sodium Sodium 125 L Chloride 92 L POC Creatinine Glucose 107 H POC Glucose Globulin 2.1 L Ur Specific [place] 1.044 H Urine Ketones 20 A 04/12/19 11:59 WBC RBC MCH Gran % Lymph % (Auto) Gran # Lymph # (Auto) POC Sodium 132 L Sodium Chloride POC Creatinine 0.6 L Glucose POC Glucose 115 H Globulin Ur Specific [place] Urine Ketones Meds: Medications Acetaminophen (Tylenol) 650 mg PO Q4-6HP PRN; Protocol PRN Reason: Per Pain Protocol/Fever > 101 Hydrocodone Bitart/Acetaminophen ([place] 7.5/325mg) 1 tab PO Q6HP PRN; Protocol PRN Reason: Pain Aspirin (Aspirin) 81 mg CHEWED DAILY [facility] Atorvastatin Calcium (Lipitor) 40 mg PO HS [facility] Last Admin: 04/12/19 21:32 Dose: 40 mg Documented by: Bisacodyl (Dulcolax) 10 mg GA Q2-3DAYS PRN PRN Reason: Constipation Cefepime HCl (Maxipime) 2 gm IV Q12H [facility] Last Admin: 04/12/19 21:17 Dose: 2 gm Documented by: Docusate Sodium (Colace) 100 mg PO BID [facility] Last Admin: 04/12/19 21:32 Dose: 100 mg Documented by: Donepezil HCl (Aricept) 10 mg PO QAM [facility] Fluoxetine HCl (Prozac) 20 mg PO DAILY [facility] Gabapentin (Neurontin) 300 mg PO TID [facility] Last Admin: 04/12/19 21:32 Dose: 300 mg Documented by: Guaifenesin/Codeine Phosphate (Robitussin Ac) 10 ml PO Q4HP PRN PRN Reason: Cough Heparin Sodium (Porcine) (Heparin) 5,000 unit SQ Q12 [facility] Last Admin: 04/12/19 21:32 Dose: 5,000 unit Documented by: Sodium Chloride (Sodium Chloride 0.9%) 1,000 mls @ 50 mls/hr IV .Q20H [facility] Stop: 04/15/19 04:43 Last Admin: 04/12/19 20:45 Dose: 50 mls/hr Documented by: Acetaminophen (Ofirmev) 650 mg in 65 mls @ 130 mls/hr IV Q6HP PRN; Protocol PRN Reason: Per Pain Protocol/Fever > 101 Magnesium Sulfate (Magnesium Sulfate) 2 gm in 50 mls @ 50 mls/hr IV UD PRN PRN Reason: MG = or < 1.7 Iron Carb/Multivit/Model [place]er/Folic Acid (Multivitamin W/Minerals) 1 tab PO DAILY [facility] Levothyroxine Sodium (Synthroid) 100 mcg PO QAMAC [facility] Melatonin (Melatonin 3mg Tablet) 3 mg PO HSP PRN PRN Reason: Insomnia Last Admin: 04/12/19 22:01 Dose: 3 mg Documented by: Omeprazole (Prilosec) 20 mg PO ACB [facility] Ondansetron HCl (Zofran Odt) 4 mg SL Q4-6HP PRN; Protocol PRN Reason: Nausea And Vomiting Ondansetron HCl (Zofran) 4 mg IV Q4-6HP PRN; Protocol PRN Reason: Nausea And Vomiting Polyethylene Glycol (Miralax) 17 gm PO DAILYP PRN PRN Reason: Constipation Potassium Chloride (Klor-Con) 40 meq PO DAILYP PRN PRN Reason: K+ < 3.5 Senna/Docusate Sodium (Senna Plus Tablet) 1 tab PO HS [facility] Last Admin: 04/12/19 21:32 Dose: 1 tab Documented by: Sodium Chloride (Saline Flush) 10 ml IV Q8 [facility] Last Admin: 04/12/19 21:32 Dose: Not Given Documented by: Thiamine HCl (Vitamin B1) 100 mg PO DAILY [facility] Trazodone HCl (Desyrel) 50 mg PO QHS PRN PRN Reason: Insomnia Medical - PN: A/P - Time Spent With Patient Total time spent is greater than 50% in coordination of care (as documented) at patient's floor/unit and/or counseling patient: 25 - 35 minutes (1) TIA (transient ischemic attack) Status: Acute Assessment and plan: * TIA symptoms-clinically resolved. CT head/CT angiogram and brain MRI unremarkable. Echocardiogram pending. Continue aspirin statin. * Leukocytosis unclear etiology with shaking chills suspicious for bacteremia in the setting of immunocompromise state. Received recent infusion of Remicade. Continue blood cultures/empiric antibiotic and source evaluation. DC antibiotics as no source identified and negative cultures * Hyponatremia-resolved now at 132. 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 Continue free water restriction * Severe deconditioning weakness continue PT OT. Likely SNF placement on discharge * History of dementia on donepezil. Stable * History of rheumatoid arthritis- On Remicade as outpatient managed by rheumatology * History of prior CVA patient. Continue aspirin/start statin * Hypothyroidism continue thyroxine * Anxiety disorder continue fluoxetine/Xanax * History of BPH continue dutastride * Chronic pain continue as needed hydrocodone * Neuropathy continue gabapentin * Full code * Prophylaxis heparin Plan * Continue telemetry monitoring * DC antibiotics * Await echocardiogram results * Continue Free water restriction * PT OT * Prior medical condition management home meds * Discharge planning per case management Current Visit: Yes
[2019-04-13] MEDS: 0.9 % SODIUM CHLORIDE 10 ML SYRINGE IV SCH ×3 (05:58→20:19)
[2019-04-13 06:50] LABS: Hematocrit 37.3 % (40.1-51.0); Hemoglobin 12.8 g/dL (13.7-17.5); Mean Cell Volume 99.7 fL (80.0-100.0); Mean Corpuscular HGB Conc 34.3 g/dL (31.0-36.0); Mean Platelet Volume 8.8 fL (7.4-10.4); Platelet Count 190 K/mcL (140-440); RBC 3.74 M/mcL (4.63-6.08); Red Cell Distribution Width 12.8 % (11.5-14.5); WBC 6.7 K/mcL (4.50-11.00)
[2019-04-13 07:10] LABS: ALT/SGPT 14 U/l (0-40); AST/SGOT 20 U/l (0-37); Albumin 3.9 gm/dL (3.2-5.2); Albumin/Globulin Ratio 1.7 (1.0-2.3); Alkaline Phosphatase 53 U/L (39-117); Bilirubin,Direct < 0.2 mg/dL (0.0-0.3); Bilirubin,Total 0.9 mg/dL (0.0-1.0); Blood Urea Nitrogen 10 mg/dl (8-23); Calcium 9.2 mg/dl (8.6-10.4); Carbon Dioxide 21 mmol/L (22-30); Chloride 101 mmol/L (96-108); Globulin 2.3 gm/dL (2.2-3.7); Glomerular Filtration Rate 95; Glucose 87 mg/dL (70-105); Lactate Dehydrogenase 162 U/L (94-250); Phosphorous 2.7 mg/dL (2.7-4.5); Triglycerides 80 mg/dl (<150); Uric Acid 4.9 mg/dL (2.5-8.0)
[2019-04-13] MEDS: OMEPRAZOLE 20 MG CAPSULE PO SCH (07:11)
[2019-04-13] MEDS: CEFEPIME 2 GM VIAL IV SCH (07:11)
[2019-04-13] MEDS: LEVOTHYROXINE 100 MCG TABLET PO SCH (07:11)
[2019-04-13 08:07] LABS: Eosinophils % (Manual) 2 % (0-7); Lymphocytes % 18 % (15-49); Monocytes % (Manual) 12 % (1-12); Platelet Estimate NORMAL (NORMAL); RBC Morphology NORMAL (NORMAL); Segmented Neutrophils % 68 % (38-78)
[2019-04-13] MEDS: GABAPENTIN 300 MG CAPSULE PO SCH ×3 (08:38→20:18)
[2019-04-13] MEDS: DOCUSATE SODIUM 100 MG CAPSULE PO SCH ×2 (08:38→20:18)
[2019-04-13] MEDS: FLUoxetine HCL 20 MG CAPSULE PO SCH (08:38)
[2019-04-13] MEDS: MULTIVIT,THER IRON,CA,FA & MIN 1 TABLET PO SCH (08:38)
[2019-04-13] MEDS: ASPIRIN 81 MG TAB.CHEW CHEWED SCH (08:38)
[2019-04-13] MEDS: THIAMINE 100 MG TABLET PO SCH (08:38)
[2019-04-13] MEDS: DONEPEZIL 10 MG TABLET PO SCH (08:38)
[2019-04-13] MEDS: HEPARIN 5,000 UNIT/ML VIAL SQ SCH ×2 (08:39→20:18)
[2019-04-13] MEDS ORDERED: NON FORMULARY MEDICATION 1 DOSE MISCELL (Aspirin [St. Joseph Aspirin Ec] 81 MG) PO SCH (09:00)
[2019-04-13] MEDS: HYDROCODONE/APAP 7.5/325MG TABLET PO PRN ×2 (09:44→18:47)
--- NOTE | 2019-04-13 13:25 | Internal Med Progress Note ---
Medical - PN: Subj Patient information: Note initiated : 04/13/19 at 1:19 pm Service Date, if different from initiated Date: [] Patient: Terence Truong a 78 y/o M admitted on 04/12/19 for Weakness. Chief Complaint: [] Interval history: Mr. Truong is a 78 year old M with a known history of arthritis currently on Remicade who woke up this morning in his usual state of health until around 9 PM started abruptly experiencing shaking chills that lasted for 45 minutes. He was subsequently nauseous and weak and noticed bilateral upper and lower extremity weakness along with slurred speech. With concerns of stroke he was evaluated in the ER. Initial NIH score 8, work-up was unremarkable with negative CT angiogram head neck/head CT. Neurologist was consulted Biochemical profile consistent with white count of 14,000, sodium 125 urine osmolality 368. Hospital service was consulted. At the time evaluation patient is accompanied with his . She was able to answer most questions. Patient is hard of hearing. He however was able to answer most of the questions and endorsed to history as above. He denies sick contacts or recent hospitalization. He denies changes in medications. He endorses to over 15 pound weight loss over the last few months with persistent loss of appetite. He denies urinary or GI symptoms, chest pain, lightheadedness, rash, joint pain, neck stiffness or photophobia. 04/13-patient doing well. Was unable to sleep last night however clinically much improved. at bedside. No fever chills or concerns per nursing staff. Stable hemodynamics. Currently on room air. White count down from 14->6.7. Discontinue antibiotic coverage as below evidence of infection at this time. MRI brain unremarkable. Echocardiogram pending. Will possibly discharge in 24 hours if continues to improve clinically. Continue telemetry monitoring for additional 24 hours. 04/14 - Constitutional Vitals: Vital Signs Temp Pulse Resp BP Pulse Ox 99.5 F H 88 20 123/78 95 04/13/19 12:00 04/13/19 04:01 04/13/19 12:00 04/13/19 12:00 04/13/19 12:00 Period Temp Pulse Resp BP Sys/Castillo Pulse Ox Last 24 Hr 97.1 F-99.5 F 70-97 01-12 112-144/64-89 95-100 Intake and Output 04/12/19 04/13/19 04/13/19 21:59 05:59 13:59 Intake Total 1050 480 600 Output Total 601 300 600 Balance 449 180 0 Weight 59.421 kg Intake & Output: Intake & Output 04/12/19 04/13/19 04/13/19 21:59 05:59 13:59 Intake Total 1050 480 600 Output Total 601 300 600 Balance 449 180 0 Weight 59.421 kg Intake: IV 1000 Sodium Chloride 0.9% 1,000 ml @ 1000 Wide Open IV [facility] Rx#: [id number] Oral 50 480 600 Output: Void Amount 600 300 600 # of times incontinent of urine 1 Other: Meal Dinner Lunch Percent of Meal Consumed 25% 50% Feeding Ability Assist with Tray Set Up Urine Appearance Clear Clear Clear Urine Color Bright Yellow Dark Yellow Bright Yellow Urine Odor Normal Normal Stool Size Large Stool Color Brown Stool Consistency Formed # Bowel Movements 1 # of times incontinent of 0 Bowels Exam: General: Alert, Awake, No acute Distress Eyes/N/T: EOMI, Head/Neck: neck supple, CV: RRR, No murmurs, Pulm: Clear b/l, no wheezing/rhonchi/rales Abd: soft, nontender, +BS x4 Ext: no clubbing/cyanosis/edema Neuro: Alert, moves all extremities, Skin: warm/dry Medical - PN: Obj Da - Labs CBC & Chem 7: 04/13/19 05:05 04/13/19 05:05 Labs: Abnormal Lab Results 04/13/19 04/13/19 04/12/19 05:05 05:05 13:47 WBC RBC 3.74 L Hgb 12.8 L Hct 37.3 L MCH 34.2 H Gran % Lymph % (Auto) Gran # Lymph # (Auto) POC Sodium Sodium 132 L Chloride Carbon Dioxide 21 L Creatinine 0.6 L POC Creatinine Glucose POC Glucose Globulin Ur Specific [place] 1.044 H Urine Ketones 20 A 04/12/19 04/12/19 04/12/19 12:46 12:00 11:59 WBC 14.0 H RBC 4.22 L Hgb Hct MCH 34.6 H Gran % 84.5 H Lymph % (Auto) 8.5 L Gran # 11.81 H Lymph # (Auto) 1.19 L POC Sodium 132 L Sodium 125 L Chloride 92 L Carbon Dioxide Creatinine POC Creatinine 0.6 L Glucose 107 H POC Glucose 115 H Globulin 2.1 L Ur Specific [place] Urine Ketones Meds: Medications Acetaminophen (Tylenol) 650 mg PO Q4-6HP PRN; Protocol PRN Reason: Per Pain Protocol/Fever > 101 Hydrocodone Bitart/Acetaminophen ([place] 7.5/325mg) 1 tab PO Q6HP PRN; Protocol PRN Reason: Pain Last Admin: 04/13/19 09:44 Dose: 1 tab Documented by: Aspirin (Aspirin) 81 mg CHEWED DAILY [facility] Last Admin: 04/13/19 08:38 Dose: 81 mg Documented by: Atorvastatin Calcium (Lipitor) 40 mg PO HS [facility] Last Admin: 04/12/19 21:32 Dose: 40 mg Documented by: Bisacodyl (Dulcolax) 10 mg ID Q2-3DAYS PRN PRN Reason: Constipation Docusate Sodium (Colace) 100 mg PO BID [facility] Last Admin: 04/13/19 08:38 Dose: 100 mg Documented by: Donepezil HCl (Aricept) 10 mg PO QAM [facility] Last Admin: 04/13/19 08:38 Dose: 10 mg Documented by: Fluoxetine HCl (Prozac) 20 mg PO DAILY [facility] Last Admin: 04/13/19 08:38 Dose: 20 mg Documented by: Gabapentin (Neurontin) 300 mg PO TID [facility] Last Admin: 04/13/19 08:38 Dose: 300 mg Documented by: Guaifenesin/Codeine Phosphate (Robitussin Ac) 10 ml PO Q4HP PRN PRN Reason: Cough Heparin Sodium (Porcine) (Heparin) 5,000 unit SQ Q12 [facility] Last Admin: 04/13/19 08:39 Dose: 5,000 unit Documented by: Sodium Chloride (Sodium Chloride 0.9%) 1,000 mls @ 50 mls/hr IV .Q20H [facility] Stop: 04/15/19 04:43 Last Admin: 04/12/19 20:45 Dose: 50 mls/hr Documented by: Acetaminophen (Ofirmev) 650 mg in 65 mls @ 130 mls/hr IV Q6HP PRN; Protocol PRN Reason: Per Pain Protocol/Fever > 101 Magnesium Sulfate (Magnesium Sulfate) 2 gm in 50 mls @ 50 mls/hr IV UD PRN PRN Reason: MG = or < 1.7 Iron Carb/Multivit/Parking Assistant/Folic Acid (Multivitamin W/Minerals) 1 tab PO DAILY [facility] Last Admin: 04/13/19 08:38 Dose: 1 tab Documented by: Levothyroxine Sodium (Synthroid) 100 mcg PO QAMAC [facility] Last Admin: 04/13/19 07:11 Dose: 100 mcg Documented by: Melatonin (Melatonin 3mg Tablet) 3 mg PO HSP PRN PRN Reason: Insomnia Last Admin: 04/12/19 22:01 Dose: 3 mg Documented by: Omeprazole (Prilosec) 20 mg PO ACB [facility] Last Admin: 04/13/19 07:11 Dose: 20 mg Documented by: Ondansetron HCl (Zofran Odt) 4 mg SL Q4-6HP PRN; Protocol PRN Reason: Nausea And Vomiting Ondansetron HCl (Zofran) 4 mg IV Q4-6HP PRN; Protocol PRN Reason: Nausea And Vomiting Polyethylene Glycol (Miralax) 17 gm PO DAILYP PRN PRN Reason: Constipation Potassium Chloride (Klor-Con) 40 meq PO DAILYP PRN PRN Reason: K+ < 3.5 Senna/Docusate Sodium (Senna Plus Tablet) 1 tab PO HS [facility] Last Admin: 04/12/19 21:32 Dose: 1 tab Documented by: Sodium Chloride (Saline Flush) 10 ml IV Q8 [facility] Last Admin: 04/13/19 05:58 Dose: Not Given Documented by: Thiamine HCl (Vitamin B1) 100 mg PO DAILY [facility] Last Admin: 04/13/19 08:38 Dose: 100 mg Documented by: Trazodone HCl (Desyrel) 50 mg PO QHS PRN PRN Reason: Insomnia Medical - PN: A/P - Time Spent With Patient Total time spent is greater than 50% in coordination of care (as documented) at patient's floor/unit and/or counseling patient: - Narrative A/P Narrative: A: *TIA symptoms (h/o prior CVA): clinically resolved -CT head/CT angiogram and brain MRI unremarkable - Echocardiogram pending *Leukocytosis: unclear etiology with shaking chills suspicious for bacteremia in the setting of immunocompromise state -Received recent infusion of Remicade *Hyponatremia: resolved -SIADH by criteria *Severe deconditioning/gen weakness: *Dementia: on donepezil. Stable *RA: On Remicade as outpatient managed by rheumatology *Hypothyroidism:continue thyroxine *Anxiety disorder: continue fluoxetine/Xanax *History of BPH continue dutastride *Chronic pain: continue as needed hydrocodone *Neuropathy: continue gabapentin Plan -Continue telemetry monitoring -Continue aspirin /statin. -DC antibiotics as no source identified and negative cultures -Await echocardiogram results -Continue Free water restriction -PT OT -Discharge planning per case management -ppx: Heparin Medical - PN: Qual - VTE Deep Vein Thrombosis/Pulmonary Embolism Present on Admission: No
[2019-04-13] MEDS: 0.9 % SODIUM CHLORIDE 1,000 ML IV SCH (16:17)
[2019-04-13] MEDS ORDERED: traZODone HCL 50 MG TABLET PO PRN (16:28)
[2019-04-13] MEDS: ATORVASTATIN 40 MG TABLET PO SCH (20:18)
[2019-04-13] MEDS: SENNOSIDES/DOCUSATE SODIUM 1 TAB TABLET PO SCH (20:18)
[2019-04-14] MEDS: 0.9 % SODIUM CHLORIDE 10 ML SYRINGE IV SCH (05:20)
--- NOTE | 2019-04-14 07:34 | Internal Med Progress Note ---
Medical - PN: Subj Patient information: Note initiated : 04/14/19 at 7:31 am Service Date, if different from initiated Date: [] Patient: Terence Truong a 78 y/o M admitted on 04/12/19 for Weakness. Chief Complaint: [] Interval history: Mr. Truong is a 78 year old M with a known history of arthritis currently on Remicade who woke up this morning in his usual state of health until around 9 PM started abruptly experiencing shaking chills that lasted for 45 minutes. He was subsequently nauseous and weak and noticed bilateral upper and lower extremity weakness along with slurred speech. With concerns of stroke he was evaluated in the ER. Initial NIH score 8, work-up was unremarkable with negative CT angiogram head neck/head CT. Neurologist was consulted Biochemical profile consistent with white count of 14,000, sodium 125 urine osmolality 368. Hospital service was consulted. At the time evaluation patient is accompanied with his . She was able to answer most questions. Patient is hard of hearing. He however was able to answer most of the questions and endorsed to history as above. He denies sick contacts or recent hospitalization. He denies changes in medications. He endorses to over 15 pound weight loss over the last few months with persistent loss of appetite. He denies urinary or GI symptoms, chest pain, lightheadedness, rash, joint pain, neck stiffness or photophobia. 04/13-patient doing well. Was unable to sleep last night however clinically much improved. at bedside. No fever chills or concerns per nursing staff. Stable hemodynamics. Currently on room air. White count down from 14->6.7. Discontinue antibiotic coverage as below evidence of infection at this time. MRI brain unremarkable. Echocardiogram pending. Will possibly discharge in 24 hours if continues to improve clinically. Continue telemetry monitoring for additional 24 hours. 04/14 Doing well. Walking the [place] with physical therapy. No new complaints. Review of Systems: denies headache/fever/chills/nausea/vomiting/chest or abdominal pain/cough/dyspnea/diarrhea. Otherwise see above. - Constitutional Vitals: Vital Signs Temp Pulse Resp BP Pulse Ox 97.8 F 69 18 136/78 96 04/14/19 07:13 04/14/19 07:13 04/14/19 07:13 04/14/19 07:13 04/14/19 07:13 Period Temp Pulse Resp BP Sys/Castillo Pulse Ox Last 24 Hr 97.8 F-99.5 F 69-100 17-22 108-136/61-78 94-100 Intake and Output 04/13/19 04/14/19 04/14/19 21:59 05:59 13:59 Intake Total 1935 200 200 Output Total 250 450 Balance 1685 -250 200 Weight 61.779 kg Intake & Output: Intake & Output 04/13/19 04/14/19 04/14/19 21:59 05:59 13:59 Intake Total 1935 200 200 Output Total 250 450 Balance 1685 -250 200 Weight 61.779 kg Intake: IV 975 Sodium Chloride 0.9% 1,000 ml @ 975 50 mls/hr IV .Q20H [facility] Rx#: [id number] Oral 960 200 200 Output: Void Amount 250 450 Other: Meal Dinner Percent of Meal Consumed 50% Feeding Ability Assist with Tray Set Up Urine Appearance Clear Clear Urine Color Bright Yellow Bright Yellow Urine Odor Normal Normal Exam: General: Alert, Awake, No acute Distress Eyes/N/T: EOMI, Head/Neck: neck supple, CV: RRR, No murmurs, Pulm: Clear b/l, no wheezing/rhonchi/rales Abd: soft, nontender, +BS x4 Ext: no clubbing/cyanosis/edema Neuro: Alert, moves all extremities, ambulating well Skin: warm/dry Medical - PN: Obj Da - Labs CBC & Chem 7: 04/13/19 05:05 04/13/19 05:05 Labs: Abnormal Lab Results 04/13/19 04/13/19 04/12/19 05:05 05:05 13:47 WBC RBC 3.74 L Hgb 12.8 L Hct 37.3 L MCH 34.2 H Gran % Lymph % (Auto) Gran # Lymph # (Auto) POC Sodium Sodium 132 L Chloride Carbon Dioxide 21 L Creatinine 0.6 L POC Creatinine Glucose POC Glucose Globulin Ur Specific [place] 1.044 H Urine Ketones 20 A 04/12/19 04/12/19 04/12/19 12:46 12:00 11:59 WBC 14.0 H RBC 4.22 L Hgb Hct MCH 34.6 H Gran % 84.5 H Lymph % (Auto) 8.5 L Gran # 11.81 H Lymph # (Auto) 1.19 L POC Sodium 132 L Sodium 125 L Chloride 92 L Carbon Dioxide Creatinine POC Creatinine 0.6 L Glucose 107 H POC Glucose 115 H Globulin 2.1 L Ur Specific [place] Urine Ketones Meds: Medications Acetaminophen (Tylenol) 650 mg PO Q4-6HP PRN; Protocol PRN Reason: Per Pain Protocol/Fever > 101 Hydrocodone Bitart/Acetaminophen ([place] 7.5/325mg) 1 tab PO Q6HP PRN; Protocol PRN Reason: Pain Last Admin: 04/13/19 18:47 Dose: 1 tab Documented by: Aspirin (Aspirin) 81 mg CHEWED DAILY [facility] Last Admin: 04/13/19 08:38 Dose: 81 mg Documented by: Atorvastatin Calcium (Lipitor) 40 mg PO HS [facility] Last Admin: 04/13/19 20:18 Dose: 40 mg Documented by: Bisacodyl (Dulcolax) 10 mg MS Q2-3DAYS PRN PRN Reason: Constipation Docusate Sodium (Colace) 100 mg PO BID [facility] Last Admin: 04/13/19 20:18 Dose: 100 mg Documented by: Donepezil HCl (Aricept) 10 mg PO QAM [facility] Last Admin: 04/13/19 08:38 Dose: 10 mg Documented by: Fluoxetine HCl (Prozac) 20 mg PO DAILY [facility] Last Admin: 04/13/19 08:38 Dose: 20 mg Documented by: Gabapentin (Neurontin) 300 mg PO TID [facility] Last Admin: 04/13/19 20:18 Dose: 300 mg Documented by: Guaifenesin/Codeine Phosphate (Robitussin Ac) 10 ml PO Q4HP PRN PRN Reason: Cough Heparin Sodium (Porcine) (Heparin) 5,000 unit SQ Q12 [facility] Last Admin: 04/13/19 20:18 Dose: 5,000 unit Documented by: Sodium Chloride (Sodium Chloride 0.9%) 1,000 mls @ 50 mls/hr IV .Q20H [facility] Stop: 04/15/19 04:43 Last Admin: 04/13/19 16:17 Dose: 50 mls/hr Documented by: Acetaminophen (Ofirmev) 650 mg in 65 mls @ 130 mls/hr IV Q6HP PRN; Protocol PRN Reason: Per Pain Protocol/Fever > 101 Magnesium Sulfate (Magnesium Sulfate) 2 gm in 50 mls @ 50 mls/hr IV UD PRN PRN Reason: MG = or < 1.7 Iron Carb/Multivit/Roll Tube Setter/Folic Acid (Multivitamin W/Minerals) 1 tab PO DAILY [facility] Last Admin: 04/13/19 08:38 Dose: 1 tab Documented by: Levothyroxine Sodium (Synthroid) 100 mcg PO QAMAC [facility] Last Admin: 04/13/19 07:11 Dose: 100 mcg Documented by: Melatonin (Melatonin 3mg Tablet) 3 mg PO HSP PRN PRN Reason: Insomnia Last Admin: 04/12/19 22:01 Dose: 3 mg Documented by: Omeprazole (Prilosec) 20 mg PO ACB [facility] Last Admin: 04/13/19 07:11 Dose: 20 mg Documented by: Ondansetron HCl (Zofran Odt) 4 mg SL Q4-6HP PRN; Protocol PRN Reason: Nausea And Vomiting Ondansetron HCl (Zofran) 4 mg IV Q4-6HP PRN; Protocol PRN Reason: Nausea And Vomiting Polyethylene Glycol (Miralax) 17 gm PO DAILYP PRN PRN Reason: Constipation Potassium Chloride (Klor-Con) 40 meq PO DAILYP PRN PRN Reason: K+ < 3.5 Senna/Docusate Sodium (Senna Plus Tablet) 1 tab PO HS [facility] Last Admin: 04/13/19 20:18 Dose: 1 tab Documented by: Sodium Chloride (Saline Flush) 10 ml IV Q8 [facility] Last Admin: 04/14/19 05:20 Dose: Not Given Documented by: Thiamine HCl (Vitamin B1) 100 mg PO DAILY [facility] Last Admin: 04/13/19 08:38 Dose: 100 mg Documented by: Trazodone HCl (Desyrel) 150 mg PO QHS PRN PRN Reason: Insomnia Last Admin: 04/13/19 20:19 Dose: 150 mg Documented by: Medical - PN: A/P - Time Spent With Patient Total time spent is greater than 50% in coordination of care (as documented) at patient's floor/unit and/or counseling patient: - Narrative A/P Narrative: A: *TIA symptoms (h/o prior CVA): clinically resolved -CT head/CT angiogram and brain MRI unremarkable -Echocardiogram *Leukocytosis: unclear etiology in the setting of immunocompromise state -Received recent infusion of Remicade -resolved *Hyponatremia: improved -SIADH by criteria *Severe deconditioning/gen weakness: *Dementia: on donepezil. Stable *RA: On Remicade as outpatient managed by rheumatology *Hypothyroidism:continue thyroxine *Anxiety disorder: continue fluoxetine/Xanax *History of BPH continue dutasteride *Chronic pain: continue as needed hydrocodone *Neuropathy: continue gabapentin Plan -Continue telemetry monitoring -Continue aspirin /statin. -DC antibiotics as no source identified and negative cultures -Await echocardiogram results -Continue Free water restriction -PT OT -Discharge planning per case management -ppx: Heparin Medical - PN: Qual - VTE Deep Vein Thrombosis/Pulmonary Embolism Present on Admission: No
[2019-04-14] MEDS: OMEPRAZOLE 20 MG CAPSULE PO SCH (07:39)
[2019-04-14] MEDS: LEVOTHYROXINE 100 MCG TABLET PO SCH (07:39)
--- NOTE | 2019-04-14 08:59 | Discharge Summary ---
Medical - DS: Prov Patient information: Note initiated : 04/14/19 at 8:57 am Service Date, if different from initiated Date: [] Patient: Terence Truong 78 y/o M admitted on 04/12/19 for Weakness. Chief Complaint: [] Date of admission: 04/12/19 16:30 Discharge date: 04/14/19 Primary care physician: Marky Duran Consults: 04/12/19 Consult to Physician [CONS] Stat Comment: Consulting Provider: Eulogio Campbell Reason For Exam: Physician to Consult Medical - DS: Meds - Discharge Medications Prescriptions: Atorvastatin [Lipitor] 20 mg PO HS #30 tab Transmission Status: Received by [id number] Active and Home Medications: Home Medications Levothyroxine [Synthroid] 100 mcg PO QAMAC 09/11/14 [History Confirmed 04/12/19 Last Taken 12/14/17] FLUoxetine HCL [Prozac] 20 mg PO DAILY 04/15/16 [History Confirmed 04/12/19 Last Taken 12/14/17] Omeprazole [Prilosec] 20 mg PO ACB 04/15/16 [History Confirmed 04/12/19 Last T aken 12/14/17] cholecalciferol (vitamin D3) 50 mcg (2,000 unit) capsule 2,000 unit PO QDAY cap 09/14/16 [History Confirmed 04/12/19 Last Taken 12/14/17] Gabapentin [Neurontin] 1 tab PO TID 12/15/17 [History Confirmed 04/12/19 Last Taken 12/14/17] Multivit,Ther Iron,Ca,FA & Min [Multivitamin W/Minerals] 1 tab PO DAILY tab 12/19/17 [Rx Confirmed 04/12/19 Last Taken Unknown] aspirin 81 mg tablet,delayed release 81 mg PO QDAY 08/30/18 [History Confirmed 04/12/19 Last Taken Unknown] hydrocodone 7.5 mg-acetaminophen 325 mg tablet 1 tab PO .COMPLEX #120 tab 04/11/19 [Rx Confirmed 04/12/19 Last Taken Unknown] Donepezil [Aricept] 10 mg PO HS 04/12/19 [History Confirmed 04/12/19 Last Taken Unknown] Triamcinolone Cream 0.1% 15G 1 dose TD TID PRN 04/12/19 [History Confirmed 04/12/19 Last Taken Unknown] inFLIXimab [Remicade] 600 mg IV UD 04/12/19 [History Confirmed 04/12/19 Last Taken Unknown] traZODone HCL [Trazodone HCl] 150 mg PO QHS PRN 04/12/19 [History Confirmed 04/13/19 Last Taken Unknown] Medical - DS: Hosp Hospital Course: Mr. Truong is a 78 year old M with a known history of arthritis currently on Remicade who woke up this morning in his usual state of health until around 9 PM started abruptly experiencing shaking chills that lasted for 45 minutes. He was subsequently nauseous and weak and noticed bilateral upper and lower extremity weakness along with slurred speech. With concerns of stroke he was evaluated in the ER. Initial NIH score 8, work-up was unremarkable with negative CT angiogram head neck/head CT. Neurologist was consulted Biochemical profile consistent with white count of 14,000, sodium 125 urine osmolality 368. Hospital service was consulted. At the time evaluation patient is accompanied with his . She was able to answer most questions. Patient is hard of hearing. He however was able to answer most of the questions and endorsed to history as above. He denies sick contacts or recent hospitalization. He denies changes in medications. He endorses to over 15 pound weight loss over the last few months with persistent loss of appetite. He denies urinary or GI symptoms, chest pain, lightheadedn ess, rash, joint pain, neck stiffness or photophobia. 04/13-patient doing well. Was unable to sleep last night however clinically much improved. at bedside. No fever chills or concerns per nursing staff. Stable hemodynamics. Currently on room air. White count down from 14->6.7. Discontinue antibiotic coverage as below evidence of infection at this time. MRI brain unremarkable. Echocardiogram pending. Will possibly discharge in 24 hours if continues to improve clinically. Continue telemetry monitoring for additional 24 hours. 04/14 Doing well. Walking the [place] with physical therapy. No new complaints. Stable for discharge. Echo report over the phone with normal EF moderate aortic insufficiency, normal bubble study. A: *TIA symptoms (h/o prior CVA): clinically resolved -CT head/CT angiogram and brain MRI unremarkable -Echocardiogram *Leukocytosis: unclear etiology in the setting of immunocompromise state -Received recent infusion of Remicade -resolved *Hyponatremia: improved -SIADH by criteria *Severe deconditioning/gen weakness: *Dementia: on donepezil. Stable *RA: On Remicade as outpatient managed by rheumatology *Hypothyroidism:continue thyroxine *Anxiety disorder: continue fluoxetine/Xanax *History of BPH continue dutasteride *Chronic pain: continue as needed hydrocodone *Neuropathy: continue gabapentin Discharge diagnosis: TIA-like symptoms. Unremarkable work-up. Secondary discharge diagnosis: Hyponatremia leukocytosis likely reactive severe deconditioning dementia rheumatoid arthritis hypothyroidism anxiety BPH chronic pain neuropathy - Time Spent with Patient Total time spent providing and/or coordinating discharge services: Medical - DS: Exam - Constitutional Vitals: Vital Signs Temp Pulse Pulse Resp BP BP Pulse Ox 04/14/19 07:13 97.8 F 69 18 136/78 96 04/14/19 04:00 97.8 F 20 133/76 95 04/14/19 00:35 71 94 04/13/19 23:49 97.8 F 20 115/75 94 04/13/19 20:01 98.1 F 22 130/73 96 04/13/19 18:34 85 95 04/13/19 18:33 109/73 04/13/19 16:00 98.9 F 100 H 20 108/61 96 04/13/19 12:00 99.5 F H 20 123/78 95 Intake and Output 04/13/19 04/14/19 04/14/19 21:59 05:59 13:59 Intake Total 1935 200 200 Output Total 250 450 150 Balance 1685 -250 50 Intake: IV 975 Sodium Chloride 0.9% 1,000 ml @ 975 50 mls/hr IV .Q20H [facility] Rx#: [id number] Oral 960 200 200 Output: Void Amount 250 450 150 Other: Meal Dinner Percent of Meal Consumed 50% Feeding Ability Assist with Tray Set Up Urine Appearance Clear Clear Urine Color Bright Yellow Bright Yellow Urine Odor Normal Normal Weight 61.779 kg Medical - DS: Data Labs on day of discharge: Preliminary micro results at discharge 04/12/19 20:38 Blood Culture - Preliminary Blood 04/12/19 20:33 Blood Culture - Preliminary Blood 04/12/19 13:47 Urine Culture - Preliminary Urine - Clean Void [facility] - DS: A/P - Patient/Caregiver Discharge Instructions Activity: increase activity as tolerated Diet: Regular Diet Prescriptions: Atorvastatin [Lipitor] 20 mg PO HS #30 tab Transmission Status: Received by [id number] - Follow up Plan Follow up with: Marky Duran MD [Primary Care Provider] - Disposition: Home, Self-Care Prognosis: Fair Rehab Potential: Fair Overall status at discharge: patient is back to baseline Medical - DS: Qual - VTE Deep Vein Thrombosis/Pulmonary Embolism Present on Admission: No
[2019-04-14] MEDS: HEPARIN 5,000 UNIT/ML VIAL SQ SCH (09:05)
[2019-04-14] MEDS: FLUoxetine HCL 20 MG CAPSULE PO SCH (09:05)
[2019-04-14] MEDS: DOCUSATE SODIUM 100 MG CAPSULE PO SCH (09:05)
[2019-04-14] MEDS: THIAMINE 100 MG TABLET PO SCH (09:05)
[2019-04-14] MEDS: ASPIRIN 81 MG TAB.CHEW CHEWED SCH (09:05)
[2019-04-14] MEDS: MULTIVIT,THER IRON,CA,FA & MIN 1 TABLET PO SCH (09:05)
[2019-04-14] MEDS: DONEPEZIL 10 MG TABLET PO SCH (09:05)
[2019-04-14] MEDS: GABAPENTIN 300 MG CAPSULE PO SCH (09:05)
== END 2019-04-14 11:48 | disposition home or self-care (01) ==
LOC: ICU 11:31 → ED 11:31 → ICU 16:35 → MEDSUR 04-13 23:31
PROVIDERS: ADMIT Internal Medicine; ATTEND Internal Medicine

== ENCOUNTER 2019-06-01 11:12 | Observation (INO) ==
[2019-06-01] MEDS ORDERED: IOPAMIDOL 100 ML BOTTLE IV ONE (11:13)
[2019-06-01] MEDS ORDERED: HYDROmorphone 2 MG/ML VIAL IV PRN ×2 (11:26→16:23)
[2019-06-01] MEDS ORDERED: 0.9 % SODIUM CHLORIDE 1,000 ML IV ONE (11:26)
--- NOTE | 2019-06-01 11:31 | Emergency Department Note ---
Abdominal Pain HPI - General Chief Complaint: Abdominal Pain Stated Complaint: Lower abdominal pain Time Seen by Provider: 06/01/19 11:13 Source: patient Mode of arrival: ambulatory Limitations: no limitations - History of Present Illness HPI Narrative: 79-year-old male patient referred to the emergency department from [facility] with chief complaint of worsening abdominal pain. Patient mentions he has had global abdominal pain for the last 3 weeks but it is worsened over the last 7 days. He was seen initially by his primary care provider at [facility] and underwent a CT scan of his abdomen. I do not have that report reviewed with the referring provider did mention that there was potential mild occlusion to the SMA and celiac arteries. Patient was seen in follow-up today by his primary care provider with considerable worsening to his abdominal pain. He has been referred for rule out ischemic bowel. Upon arrival, patient complains of exquisite 10+/10 pain throughout his abdomen. He denies systemic fever, sweats, chills. He denies shortness of breath. He denies retrosternal chest pain or palpitations. He denies nausea, vomiting, diarrhea, or constipation. He admits to past history of appendectomy as a chil d. He denies hematuria or hematochezia. He denies focal weakness. Review of his active problems shows the following: Left hip fracture, TIA, weakness, hyponatremia, irregular heart rate, joint syndrome, osteoarthritis, polyarthralgia, CVA, herniated lumbar disc, herpes zoster, hyperlipidemia, squ amous cell carcinoma, hypercholesterolemia, anemia, restless leg, anxiety, hypothyroidism, osteoporosis, BPH. - Related Data Home Medications Medication Instructions Recorded Confirmed Levothyroxine [Synthroid] 100 mcg PO QAMAC 09/11/14 06/01/19 FLUoxetine HCL [Prozac] 20 mg PO DAILY 04/15/16 06/01/19 Omeprazole [Prilosec] 20 mg PO ACB 04/15/16 06/01/19 aspirin 81 mg tablet,delayed 81 mg PO QDAY 08/30/18 06/01/19 release traZODone HCL [Trazodone HCl] 50 - 100 mg PO QHS PRN 04/12/19 06/01/19 Diclofenac Sodium 4 gm TOPICAL QIDP PRN 06/01/19 06/01/19 Donepezil [Aricept] 10 mg PO DAILY 06/01/19 06/01/19 Gabapentin [Neurontin] 300 mg PO TID 06/01/19 06/01/19 Hydrocodone/APAP 7.5/325Mg [[place] 1 tab PO Q6HP 06/01/19 06/01/19 7.5-325Mg] OLANZapine [Olanzapine Odt] 5 mg PO QPM 06/01/19 06/01/19 Ondansetron HCl [Zofran] 4 mg PO Q4-6H PRN 06/01/19 06/01/19 predniSONE [Prednisone] 20 mg PO QAMCC 06/01/19 06/01/19 Previous Rx's Medication Instructions Recorded Multivit,Ther Iron,Ca,FA & Min 1 tab PO DAILY tab 12/19/17 [Multivitamin W/Minerals] Allergies Allergy/AdvReac Type Severity Reaction Status Date / Time No Known Drug Allergies Allergy Verified 06/01/19 11:12 Review of Systems All systems ED: reviewed and negative except as stated. Abdominal Pain PMH - Past Medical History Medical history: Reports: other (rheumatoid arthritis) Family history: Reports: no significant family history - Social History Smoking status: Former smoker Physical Exam Limitations: no limitations General appearance: alert, anxious, grimacing, in distress, other (Well- developed, well-nourished, 79-year-old male patient laying semirecumbent on the emergency room gurney in obvious distress. He is cradling his abdomen.) Head: atraumatic, normocephalic Eye: Present: normal appearance, PERRL, EOMI. Absent: scleral icterus, conjunctival injection ENT: Present: normal oropharynx, mucous membranes moist Neck: Present: trachea midline. Absent: lymphadenopathy, thyromegaly Chest: Present: symmetric chest wall rise Respiratory: Present: normal lung sounds bilaterally. Absent: respiratory distress, wheezes, stridor, accessory muscle use, prolonged expiratory phase Cardiovascular: Present: regular rate, normal rhythm. Absent: systolic murmur, diastolic murmur Abdominal: Present: soft, tenderness, guarding, normal bowel sounds. Absent: distention, rebound, rigidity, organomegaly, mass Abdominal tenderness: Present: diffuse, severe Extremities: Present: normal inspection, full ROM, normal capillary refill. Absent: pedal edema Neurological: Present: alert, oriented X3 Psychiatric: Present: normal affect, normal mood Skin: Present: warm, dry Course Course Narrative: Patient was brought into the emergency department and a history of physical exam was performed. Saline lock was established and laboratory studies were drawn. Abdominal CT scan with contrast was ordered and reviewed. Patient was given Dilaudid 0.5 mg IVP. Upon reevaluation patient says his pain is slightly better but comes in waves. A review of the patient's laboratory studies show the following: CBC WBC 7.3, RBC 3.85, hemoglobin 13.3, hematocrit 38.4, platelet 197. CMP CO2 21, total bilirubin 1.1, all others normal limits. Lactic acid 2.7. 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 60% stenosis of the SMA to the a fibrofatty plaque. This does place patient at risk of mesenteric ischemia. Radiologist did mention mild ileus. There is also mention to chronic elevation of the right diaphragm. Radiologist also mentions moderate cardiomegaly. After reviewing all the data I discussed these findings with the on-call general surgeon (Dr. Oden). At this time the patient does not have stenosis at the level that would create some form of ischemia. There is no mention of bowel changes based on the CT scan. At this time he does not appear to be a surgical case. Dr. Oden did recommend the patient be admitted to the hospital for a short course of observation to ensure he gets better. He mentions this is likely gastroenteritis. He requested that I reach out to the hospitalist service about possible admission. With this in mind, I reached out to the hospitalist (Dr. Hidalgo) and I discussed the case with him. At this time D concurred that the patient likely needs admitted. At this time, he is dealing with multiple patients on the medical service and is requesting that Dr. Oden admit the patient under the surgical service. With this in mind, I reached back out to Dr. Oden and explained all this to him. At this time Dr. Oden requested that the patient be admitted under observation recommend the patient be placed n.p.o. Patient is going to be admitted under the surgical service as mentioned. All further treatment decisions, modalities, and ultimate patient disposition will be carried out by Dr. Oden in the surgical service. Vital Signs Temperature 97.6 F 06/01/19 11:12 Pulse Rate 66 04/10/20 11:12 Respiratory Rate 16 06/01/19 11:12 Blood Pressure 132/68 06/01/19 11:12 Pulse Oximetry (%) 97 06/01/19 11:12 Temperature 98.4 F 06/01/19 20:00 Pulse Rate 68 06/01/19 20:00 Respiratory Rate 16 06/01/19 20:00 Blood Pressure 120/74 06/01/19 20:00 Pulse Oximetry (%) 98 06/01/19 20:00 Abdominal Pain - Lab Data Result diagrams: 06/01/19 11:53 06/01/19 11:53 Lab Results 06/01/19 06/01/19 06/01/19 Range/Units 11:53 11:53 11:53 WBC 7.3 (4.50-11.00) K/mcL RBC 3.85 L (4.63-6.08) M/mcL Hgb 13.3 L (13.7-17.5) g/dL Hct 38.4 L (40.1-51.0) % POC Hct 40.0 L (41.0-55.0) % MCV 99.7 (80.0-100.0) fL MCH 34.5 H (26.0-34.0) pg MCHC 34.6 (31.0-36.0) g/dL RDW 12.4 (11.5-14.5) % Plt Count 197 (140-440) K/mcL MPV 8.9 (7.4-10.4) fL Gran % 64.5 (38.0-78.0) % Lymph % (Auto) 26.0 (15.5-49.0) % [place] % (Auto) 8.8 (1.0-12.0) % Eos % (Auto) 0.4 (0.0-7.0) % Baso % (Auto) 0.3 (0.0-2.0) % Gran # 4.68 (1.80-8.00) K/mcL Lymph # (Auto) 1.89 (1.50-4.80) K/mcL [place] # (Auto) 0.64 (0.10-0.90) K/mcL Eos # (Auto) 0.03 (0.00-0.70) K/mcL Baso # (Auto) 0.02 (0.00-0.30) K/mcL VBG Lactic Acid 2.7 H (0.5-2.0) mmol/L POC Sodium 136 (133-145) mmol/L Sodium 134 (133-145) mmol/L POC Potassium 3.9 (3.3-5.1) mmol/L Potassium 3.9 (3.3-5.1) mmol/L POC Chloride 103 (96-108) mmol/L Chloride 100 (96-108) mmol/L Carbon Dioxide 21 L (22-30) mmol/L POC Total CO2 21 L (22-30) mmol/L Anion Gap 13.0 (8-16) POC BUN 16 (8-23) mg/dl BUN 16 (8-23) mg/dl Creatinine 0.7 (0.7-1.2) mg/dl POC Creatinine 0.6 L (0.7-1.2) mg/dl GFR Calculation 89 Glucose 87 (70-105) mg/dL POC Glucose 88 (70-105) mg/dL Calcium 9.5 (8.6-10.4) mg/dl POC WB Ioniz Calcium 1.10 L (1.16-1.32) mmol/L Total Bilirubin 1.1 H (0.0-1.0) mg/dL AST 25 (0-37) U/l ALT 27 (0-40) U/l Alkaline Phosphatase 48 (39-117) U/L Total Protein 6.8 (5.9-8.4) gm/dL Albumin 4.3 (3.2-5.2) gm/dL Globulin 2.5 (2.2-3.7) gm/dL Albumin/Globulin Ratio 1.7 (1.0-2.3) Disposition Pt seen by [facility]/PA only: Yes Clinical Impression: Abdominal pain Qualifiers: Abdominal location: lower abdomen, unspecified Qualified Code(s): R10.30 - Lower abdominal pain, unspecified Disposition: Xfer As Outpt/Obs ([facility]) Condition: Fair
[2019-06-01 12:05] LABS: POC Blood Urea Nitrogen 16 mg/dl (8-23); POC CO2 21 mmol/L (22-30); POC Chloride 103 mmol/L (96-108); POC Creatinine 0.6 mg/dl (0.7-1.2); POC Glucose, Random 88 mg/dL (70-105); POC Potassium 3.9 mmol/L (3.3-5.1); POC Sodium 136 mmol/L (133-145)
[2019-06-01] MEDS ORDERED: LORazepam 2 MG/ML VIAL IV ONE (12:09)
[2019-06-01 12:34] LABS: Basophils # (Auto) 0.02 K/mcL (0.00-0.30); Basophils % (Auto) 0.3 % (0.0-2.0); Eosinophils # (Auto) 0.03 K/mcL (0.00-0.70); Eosinophils % (Auto) 0.4 % (0.0-7.0); Granulocytes % (Auto) 64.5 % (38.0-78.0); Hematocrit 38.4 % (40.1-51.0); Hemoglobin 13.3 g/dL (13.7-17.5); Lymphocytes # (Auto) 1.89 K/mcL (1.50-4.80); Mean Cell Volume 99.7 fL (80.0-100.0); Mean Corpuscular HGB Conc 34.6 g/dL (31.0-36.0); Mean Platelet Volume 8.9 fL (7.4-10.4); Monocytes # (Auto) 0.64 K/mcL (0.10-0.90); Monocytes % (Auto) 8.8 % (1.0-12.0); Platelet Count 197 K/mcL (140-440); RBC 3.85 M/mcL (4.63-6.08); Red Cell Distribution Width 12.4 % (11.5-14.5); WBC 7.3 K/mcL (4.50-11.00)
[2019-06-01 12:54] LABS: ALT/SGPT 27 U/l (0-40); AST/SGOT 25 U/l (0-37); Albumin 4.3 gm/dL (3.2-5.2); Albumin/Globulin Ratio 1.7 (1.0-2.3); Alkaline Phosphatase 48 U/L (39-117); Bilirubin,Total 1.1 mg/dL (0.0-1.0); Blood Urea Nitrogen 16 mg/dl (8-23); Calcium 9.5 mg/dl (8.6-10.4); Carbon Dioxide 21 mmol/L (22-30); Chloride 100 mmol/L (96-108); Globulin 2.5 gm/dL (2.2-3.7); Glomerular Filtration Rate 89; Glucose 87 mg/dL (70-105)
--- NOTE | 2019-06-01 13:33 | Cat Scan Report ---
CLINICAL INFORMATION: Worsening pain. Possible ischemic bowel COMPARISON: Abdomen and pelvic CT - 04/12/2019 TECHNIQUE: Following enteric contrast, 80 cc of Isovue-370 were injected intravenously, and 60 seconds later, 0.625 mm helical slices were obtained from the mid heart through the subtrochanteric regions. Following reconstruction, 2.5 mm sagittal, coronal and axial reformatted images were processed and reviewed at bone, lung and soft tissue windows. Five minutes later, 0.625 mm helical slices were obtained from the mid heart through the kidneys and viewed at soft tissue windows.The exam was performed using radiation dose optimization techniques including, but not limited to, automated exposure control, adjustment of the mA and/or kV according to patient size and use of iterative reconstruction technique. FINDINGS: Lung bases show scattered scarring and/or atelectasis. There are no infiltrates or effusion. The heart is mildly enlarged with moderately heavy calcific and fibrofatty plaque in the coronary arteries. There is also calcification in the aortic valve. Abdominal images show 5 mm simple cyst the right hepatic lobe. No other hepatic abnormality. The gallbladder and bile ducts normal: CBD is 5 mm. Both kidneys, adrenal glands, spleen and pancreas are normal in size configuration and attenuation without focal lesion. The aorta is normal diameter with moderate fibrofatty calcific plaque. 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 There is a 60% stenosis of the SMA due to fibrofatty plaque. The MARY, renal, iliac arteries and the plaque, but no stenoses. There is no free air, free fluid or adenopathy Pelvic images show urinary bladder is normal. Prostate and seminal vesicles are grossly normal. The stomach, small bowel, large bowel show mild symmetric dilatation compatible with mild ileus. Appendix region is normal. Bone windows show right total hip prosthesis which is anatomically aligned without loosening or infection. Old left trochanteric fracture is transfixed by gamma nail in near-anatomic alignment. L4-5 anterior/posterior fusion and laminectomy appreciated IMPRESSION: 1. 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 60% stenosis of the SMA to fibrofatty plaque. The patient is at risk for mesenteric ischemia. 2. Mild ileus 3. Chronic elevation right diaphragm. 4. Moderate cardiomegaly accentuated by pectus excavatum deformity. Heavy calcific plaque in the coronary arteries and calcification in the aortic valve Interpreted and Authenticated by: Devyn Tuttle 06/01/19
[2019-06-01] MEDS ORDERED: ONDANSETRON 4 MG/2 ML VIAL IV PRN (16:23)
[2019-06-01] MEDS ORDERED: ONDANSETRON 4 MG ODT TABLET SL PRN (16:23)
[2019-06-01] MEDS ORDERED: ACETAMINOPHEN 325 MG TABLET PO PRN (16:23)
--- NOTE | 2019-06-01 16:39 | General Surg History&Physical ---
History of Present Illness Patient information: Note initiated : 06/01/19 at 4:37 pm Service Date, if different from initiated Date: [] Patient: Terence Truong a 79 y/o M admitted on 06/01/19 for Lower abdominal pain. Chief Complaint: [] HPI: Mr. Truong is a 79 year old M with 3 week history of abdominal pain associated with intermittent diarrhea. Pain is in low abdomen and is not bloody. He deny melena or hematochezia. He also deny nausea or vomiting. last episode of diarrhea was last night. His abdominal pain he rates at a 9/10 when it is severe. He has not had any foreign travel recently. Review of Systems - Constitutional as per HPI, fatigue, malaise, weight loss, no chills, no daytime sleepiness, no excessive sweating, no fever(s) - EENT Ears: bilateral: decreased hearing (hearing aides ) Nose, mouth and throat: abnormal hearing, no change in voice, no dental pain, no dizziness, no headache(s), no neck pain, no vertigo - Cardiovascular irregular heart rhythm, no chest pain, no chest pain at rest, no chest pain with activity, no claudication - Respiratory no cough, no dyspnea, no wheezing - Gastrointestinal abdominal pain, change in bowel habits, diarrhea, no bloating, no coffee ground emesis, no constipation - Genitourinary change in urinary stream, no difficulty urinating - Musculoskeletal no joint swelling, no muscle cramps, no muscle weakness, no numbness - Integumentary no bleeding lesions, no change in hair, no change in nails, no change in pigmentation, no rash - Neurological no abnormal movements, no abnormal speech, no confusion, no convulsions, no dizziness, no loss of vision, no syncope - Hematologic/Lymphatic no easy bleeding, no easy bruising, no lymphadenopathy Past History Past medical history: multiple medical problems see chart summary Past surgical history: Multiple joint replacements and other surgery, No abdominal surgery see Chart Summary Past family history: no other family members present with diarrhea at this time Past social history: Retired aragon, also worked in a [employer] wiliam smoking but did use chewing tobacco until a year or so ago deny significant alcohol use /abuse Medications and Allergies Home Medications Medication Instructions Recorded Confirmed Type Levothyroxine [Synthroid] 100 mcg PO QAMAC 09/11/14 06/01/19 History FLUoxetine HCL [Prozac] 20 mg PO DAILY 04/15/16 06/01/19 History Omeprazole [Prilosec] 20 mg PO ACB 04/15/16 06/01/19 History cholecalciferol (vitamin D3) 50 2,000 unit PO QDAY cap 09/14/16 05/03/19 History mcg (2,000 unit) capsule Gabapentin [Neurontin] 1 tab PO TID 12/15/17 06/01/19 History Multivit,Ther Iron,Ca,FA & Min 1 tab PO DAILY tab 12/19/17 06/01/19 Rx [Multivitamin W/Minerals] aspirin 81 mg tablet,delayed 81 mg PO QDAY 08/30/18 06/01/19 History release inFLIXimab [Remicade] 600 mg IV UD 04/12/19 06/01/19 History traZODone HCL [Trazodone HCl] 150 mg PO QHS PRN 04/12/19 06/01/19 History Allergies Allergy/AdvReac Type Severity Reaction Status Date / Time No Known Drug Allergies Allergy Verified 06/01/19 11:12 Exam Temp Pulse Resp BP Pulse Ox 99.1 F H 63 16 133/80 97 06/01/19 16:33 06/01/19 14:30 06/01/19 16:33 06/01/19 16:33 06/01/19 16:33 - General physical appearance well developed, well nourished, no distress, moderate pain - Eyes normal ocular movement, deviation. negative: icteric - ENT decreased hearing, other (hearing Aides ) - Head Head exam IM: Present: atraumatic, normal inspection, normocephalic - Neck no masses, no bruits - Cardiovascular Cardiovascular exam IM: Present: normal rate and rhythm - Respiratory normal expansion, normal respiratory effort, clear to percussion, clear to auscultation - Abdomen Abdomen: Present: soft, non tender, bowel sounds (mildly hyperactive BS) Hernia: Present: none - Genitourinary Present: normal penis with no external lesions - Integumentary Present: no rash - Neurologic Present: normal coordination, normal sensation - Psychiatric Present: oriented to time, oriented to person, oriented to place Results - Results CT scan - abdomen: report reviewed, image reviewed (no evidence of ischemic bowel) Assessment and Plan (1) Diarrhea will start W/U for C-diff and other sources of infectious D Status: Acute Priority: High Qualifiers: Diarrhea type: unspecified type Qualified Code(s): R19.7 - Diarrhea, unspecified (2) Abdominal pain Status: Acute Qualifiers: Abdominal location: lower abdomen, unspecified Qualified Code(s): R10.30 - Lower abdominal pain, unspecified
[2019-06-01] MEDS: DEXTROSE 5%-1/2NS 1,000 ML IV SCH (16:52)
[2019-06-01] MEDS: FAMOTIDINE/PF 20 MG/2 ML VIAL IV SCH (20:32)
[2019-06-01] MEDS: HEPARIN 5,000 UNIT/ML VIAL SQ SCH (20:33)
[2019-06-01] MEDS: 0.9 % SODIUM CHLORIDE 10 ML SYRINGE IV SCH (20:47)
[2019-06-02] MEDS: DEXTROSE 5%-1/2NS 1,000 ML IV SCH ×2 (00:36→10:53)
[2019-06-02] MEDS: 0.9 % SODIUM CHLORIDE 10 ML SYRINGE IV SCH (04:12)
[2019-06-02 06:50] LABS: Basophils # (Auto) 0.02 K/mcL (0.00-0.30); Basophils % (Auto) 0.4 % (0.0-2.0); Eosinophils # (Auto) 0.04 K/mcL (0.00-0.70); Eosinophils % (Auto) 0.7 % (0.0-7.0); Granulocytes % (Auto) 64.8 % (38.0-78.0); Hematocrit 36.3 % (40.1-51.0); Hemoglobin 12.4 g/dL (13.7-17.5); Lymphocytes # (Auto) 1.36 K/mcL (1.50-4.80); Lymphocytes % (Auto) 24.8 % (15.5-49.0); Mean Cell Volume 100.3 fL (80.0-100.0); Mean Corpuscular HGB Conc 34.2 g/dL (31.0-36.0); Mean Platelet Volume 8.9 fL (7.4-10.4); Monocytes # (Auto) 0.51 K/mcL (0.10-0.90); Monocytes % (Auto) 9.3 % (1.0-12.0); Platelet Count 180 K/mcL (140-440); RBC 3.62 M/mcL (4.63-6.08); Red Cell Distribution Width 12.5 % (11.5-14.5); WBC 5.5 K/mcL (4.50-11.00)
[2019-06-02 07:14] LABS: Calcium 8.5 mg/dl (8.6-10.4); Carbon Dioxide 21 mmol/L (22-30); Chloride 99 mmol/L (96-108); Glomerular Filtration Rate 94; Glucose 120 mg/dL (70-105)
[2019-06-02 07:15] LABS: Blood Urea Nitrogen 7 mg/dl (8-23)
[2019-06-02] MEDS: FAMOTIDINE/PF 20 MG/2 ML VIAL IV SCH (10:52)
[2019-06-02] MEDS: HEPARIN 5,000 UNIT/ML VIAL SQ SCH (10:52)
--- NOTE | 2019-06-05 09:42 | Discharge Summary ---
Providers - Providers Patient information: Note initiated : 06/05/19 at 9:38 am Service Date, if different from initiated Date: [] Patient: Terence Truong 79 y/o M admitted on 06/01/19 for Lower abdominal pain. Chief Complaint: [] Date of admission: 06/01/19 Discharge date: 06/02/19 Attending physician: Phillip Oden Hospitalization Hospital Course: Admitted to Obs for abd pain and diarrhea He did not have a BM in the 24 hours he was admitted and wished to be D/C'd For details see Admision H&P He has a routine F/u appt and a GI consult and is being atively treated at another institution. HE will be D/C'd to follow up with his regular MD and GI Doc. Discharge diagnosis: abd pain Exam Temp Pulse Resp BP Pulse Ox 98.9 F 70 20 153/82 99 06/02/19 11:35 06/02/19 11:35 06/02/19 11:35 06/02/19 11:35 06/02/19 11:35 Discharge Plan - Patient/Caregiver Discharge Instructions Activity: increase activity as tolerated Diet: Regular Diet, High Fiber Additional Instructions: Resume home diet as tolerated. Activity as tolerated. Follow up with Thanh Mendoza D.O. Contact the office on Saturday 06/03 to schedule. [phone] Return to ER for uncontrolled pain, nausea and/or vomiting, chills, fever, diz ziness, chest pain, shortness of breath, return of symptoms, or other acute symptom. - Follow up Plan Follow up with: Thanh Mendoza DO [Primary Care Provider] - Disposition: Home, Self-Care Care Plan Goals: This discharge packet is provided to you to help keep you informed about your care. We want to ensure you get everything you need when you go home. You will also be receiving a call from us in a few days to follow up with you and see how you are doing since your discharge. This gives us a chance to listen to any concerns you maybe experiencing since you were discharged or any additional needs you may have, as well as providing us feedback on your care experience. We strive to always provide excellent care and thank you for your feedback and for choosing [facility].follow up with regular MD and GI Prognosis: Good Rehab Potential: Good I certify that the patient requires SNF services.: No Pending Studies Diet Regular Diet Start Sat Jun 01 954 Shift Summary 06/02/19 04:23 Shift Summary by Cheyenne Prieto A&O x4, calm and cooperative with cares. C-Diff sample still needed - no BM this shift. Voids per urinal at bedside. 20G IV to RFA infusing D5 1/2NS at 125ml/hr. Medicated with IV Dilaudid x1 for abdominal pain, otherwise denied needs throughout shift. Remained NPO this shift. VSS on RA. Turn/Repositions independently with occasional verbal reminders. Will update at bedside. Initialized on 06/02/19 04:23 - END OF NOTE
--- NOTE | 2019-06-05 15:43 | General Surgery Progress Note ---
Subjective Patient reports: no new complaints, feels better Narrative: Note initiated : 06/05/19 at 3:41 pm Service Date, if different from initiated Date: [] Patient: Terence Truong 79 y/o M admitted on 06/01/19 for Lower abdominal pain. Chief Complaint: [] He feels better and wants katey go home. He says he already has a GI doc and his primary MD caan follow up with this. Objective Temp Pulse Resp BP Pulse Ox 98.9 F 70 20 153/82 99 06/02/19 11:35 06/02/19 11:35 06/02/19 11:35 06/02/19 11:35 06/02/19 11:35 - Abdomen non tender - Labs 06/02/19 05:02 06/02/19 05:02 Assessment and Plan (1) Diarrhea Status: Chronic Assessment and plan: Chronic issue and he will follow up with already established GI MD (2) Abdominal pain Status: Acute Assessment and plan: Improved enough that he can go home and follow up with his 1 MD - Time Spent With Patient Total time spent is greater than 50% in coordination of care (as documented) at patient's floor/unit and/or counseling patient:
--- NOTE | 2019-06-08 09:51 | Discharge Summary ---
DATE OF ADMISSION: 06/01/2019 DATE OF DISCHARGE: 06/02/2019 ADMITTING DIAGNOSES: Abdominal pain with intermittent diarrhea. DISCHARGE DIAGNOSES: Abdominal pain potentially resolved, irritable bowel syndrome most likely. DIAGNOSTIC STUDIES: CT scan. HOSPITAL COURSE: This is an 79-year-old white male, poor historian, seen in the emergency room after being seen at an outside primary care center with abdominal pain. Pain was out of proportion to the exam and he was referred here to rule out ischemic bowel. CT scan showed mild stenosis of multiple intra-abdominal arteries but without enough stenosis to consider ischemic or necrotic bowel. White count was normal and other labs were essentially normal. He has a history of intermittent constipation and diarrhea-for details, see the dictated admission history and physical. He was given IV fluids and observed for less than 24 hours and in the morning he wished to go home and was adamant that his pain was better. He has been given the number of doses of Dilaudid in the hospital and that seemed to resolve his pain. Review of his medical history with him more lucid in the morning shows that he has been worked up by his primary care and his hot tar roofer for irritable bowel syndrome and has a history of significant narcotic intake. Since he was better and he had appropriate followup already in place, he was discharged for followup by his primary care physician and Gastroenterology as previously arranged. DISPOSITION: To home with followup to his primary care physician and GI. RPL:danni Job ID: [id number] Doc ID: [id number] Phillip Oden MD
== END 2019-06-02 11:35 | disposition home or self-care (01) ==
LOC: MEDSUR 11:12 → ED 11:12 → MEDSUR 16:17
PROVIDERS: ADMIT Specialist; ATTEND Specialist